=== PATIENT | male | born 1980 | race Caucasian/White ===

== ENCOUNTER 2018-08-20 22:47 | Inpatient (IN) | payer MEDICAID ==
[2018-08-20 22:49] VITALS: BMI 35.8
[2018-08-20] MEDS ORDERED: Heparin25000 units/250ml 1/2NS 25,000 UNITS/250 ML BAG IV STA ×2 (22:51)
--- NOTE | 2018-08-20 22:51 | C.PDOC ---
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 Is a NIDDM received 324 asa en route. Pt diaphoretic, non radiating pain Sharp , stabbing pressure 10/10 pain Time Seen by Provider: 08/20/18 22:50 Chief Complaint (Nursing): Chest Pain History Per: Patient, EMS, Family History/Exam Limitations: no limitations Onset/Duration Of Symptoms: Hrs Current Symptoms Are (Timing): Worse Context: Other Severity: Severe Pain Scale Rating Of: 10 Quality: Sharp, Tightness, Pressure, Squeezing Associated Symptoms: Diaphoresis Modifying Factors: None Exacerbating Factors: None Alleviating Factors: None Recent travel outside of the [place]: No Additional History Per: EMS Past Medical History Family History: States: No Known Family Hx Review Of Systems Constitutional: Negative for: Fever, Chills Eyes: Negative for: Vision Change ENT: Negative for: Throat Pain Cardiovascular: Positive for: Chest Pain Respiratory: Positive for: Shortness of Breath Gastrointestinal: Positive for: Nausea. Negative for: Abdominal Pain Musculoskeletal: Negative for: Back Pain Skin: Negative for: Rash Neurological: Negative for: Weakness Psych: Positive for: Anxiety Physical Exam - Physical Exam Appears: In Acute Distress Skin: Diaphoretic Head: Normacephalic Eye(s): bilateral: Normal Inspection Oral Mucosa: Moist Neck: Supple Chest: Symmetrical Cardiovascular: Rhythm Regular Respiratory: No Rales, No Rhonchi, No Wheezing Gastrointestinal/Abdominal: Soft, No Tenderness, Distention, No Guarding, No Rebound Back: No CVA Tenderness Extremity: No Tenderness, No Pedal Edema Extremity: Bilateral: Atraumatic, Normal Color And Temperature Pulses: Left Dorsalis Pedis: Normal, Right Dorsalis Pedis: Normal Neurological/Psych: Oriented x3 Gait: Unable To Assess ED Course And Treatment - Laboratory Results Result Diagrams: 08/20/18 23:12 ECG: Interpreted By Me, Viewed By Me ECG Rhythm: Sinus Rhythm, ST/T Changes (acute inferolat mi) Pulse Ox Interpretation: Normal - Radiology CXR: Interpreted by Me, Viewed By Me CXR Interpretation: No: Infiltrates, Fracture, Pnemothorax Progress Note: 22:[address] haynes and sent ekg. code heart activated - 22:46. Dr Haynes and team en route Critical Care Time - Critical Care Note Total Time (in mins): 30 Documented critical care: time excludes all time spent performing seperately billable procedures. Disposition Discussed With DrBharathi: Mikal Mckee Comment: accepted the pt onhis service and took over the care at 11:22 PM Doctor Will See Patient In The: ED Counseled Patient/Family Regarding: Studies Performed, Diagnosis - Disposition Disposition: HOSPITALIZED Disposition Time: 22:51 Condition: CRITICAL - POA Present On Arrival: Poor Glycemic Control - Clinical Impression Clinical Impression: Acute inferolateral myocardial infarction Decision To Admit - Pt Status Changed To: Hospital Disposition Of: Inpatient - Admit Certification Admit to Inpatient:: After my assessment, the patient will require hospitalization for at least two midnights. This is because of the severity of symptoms shown, intensity of services needed, and/or the medical risk in this patient being treated as an outpatient. - InPatient: Physician Admission Certification: I certify that this patient requires 2 or m ore midnights of care for the following reason:: After my assessment, the patient will require hospitalization for at least two midnights. This is because of the severity of symptoms shown, intensity of services needed, and/or the medical risk in this patient being treated as an outpatient. - . Bed Request Type: ICU Admitting Physician: Mikal Mckee Patient Diagnosis: Acute inferolateral myocardial infarction
[2018-08-20] MEDS ORDERED: Morphine 4 MG/ML VIAL ONE (23:00)
[2018-08-20] MEDS ORDERED: Heparin25000 units/250ml 1/2NS 25,000 UNITS/250 ML BAG IV ONE (23:01)
[2018-08-20] MEDS ORDERED: Heparin25000 units/250ml 1/2NS 25,000 UNITS/250 ML BAG IV PRN (23:09)
--- NOTE | 2018-08-20 23:17 | CP.PCM.HP ---
<Christopher Burroughs - Last Filed: 08/21/18 00:45> History of Present Illness - History of Present Illness History of Present Illness: 38M PMHx of DM with a 1hr hx of 10/10 chest pain, radiating into both upper extremtities, sweating and intense generalized body pains. Pt says it happened a ll of a sudden while having intercourse with his . Pt called ambulance and received ASA 325 and fentanyl 50mcg in the field. Pt still with intense chest pain at this time and is improving slightly with morphine. Pt is compliant with his DM oral medications. Pt says hes never had pains like this before, pt is very worried because his mom sisters and brothers have all of MIs in their 40s. EKG in ED shows STEMI PMHx: DM2 PSx: none FH: mom sisters and brothers have all of MIs in their 40s SocHx: smokes 3 cigs a day 20 years, no etoh or drugs Allergies: denies Home Rx: 2 Oral DM medications? [facility] pharmacy full code [place] [phone] Present on Admission - Present on Admission Any Indicators Present on Admission: No Review of Systems - Review of Systems All systems: reviewed and no additional remarkable complaints except (as per HPI) Past Patient History - Past Social History Smoking Status: Light Smoker < 10 Cigarettes Daily - CARDIAC Hx Hypertension: Yes - PULMONARY Hx Respiratory Disorders: No - NEUROLOGICAL Hx Neurological Disorder: No - HEENT Hx HEENT Problems: No - RENAL Hx Chronic Kidney Disease: No - ENDOCRINE/METABOLIC Hx Endocrine Disorders: Yes Hx Diabetes Mellitus Type 2: Yes - PSYCHIATRIC Hx Substance Use: No Meds Allergies/Adverse Reactions: Allergies Allergy/AdvReac Type Severity Reaction Status Date / Time No Known Allergies Allergy Verified 08/20/18 22:49 Physical Exam - Constitutional Appears: In Acute Distress - Head Exam Head Exam: ATRAUMATIC, NORMAL INSPECTION - Eye Exam Eye Exam: PERRL. absent: Scleral icterus - ENT Exam ENT Exam: Mucous Membranes Moist - Respiratory Exam Respiratory Exam: Respiratory Distress - Cardiovascular Exam Cardiovascular Exam: Tachycardia, +S1, +S2 - GI/Abdominal Exam GI & Abdominal Exam: absent: Rigid, Tenderness - Extremities Exam Extremities exam: Positive for: pedal pulses present. Negative for: pedal edema - Neurological Exam Neurological exam: Alert, CN II-XII Intact, Oriented x3 - Psychiatric Exam Psychiatric exam: Anxious - Skin Skin Exam: Diaphoretic Results - Vital Signs Recent Vital Signs: Last Vital Signs Temp Pulse 86 08/20/18 22:50 Resp 32 H 08/20/18 22:50 BP 120/89 08/20/18 22:50 Pulse Ox 97 08/20/18 22:50 - Labs Result Diagrams: 08/20/18 23:12 Assessment & Plan - Assessment and Plan (Free Text) Assessment: 38M hx of DM, admitted to ICU for STEMI Plan: STEMI-RCA? -ASA 325 in field -Brillinta 180 stat, c/w 90 BID -Heparin GGT -Crestor 40 HS -Lopressor 12.5 BID -NS @ 80 -Dr Dias Cardio consulted 1. L Main: Patent 2. LAD: Distal 50-60% 3. L Cx/OM: Mid 80% 4. RCA: Mid 99%, distal 90% stenosis 5. LV: EF 55%, Inferior Hypo, EDP 22 Successful intervention of RCA with 2 DEStents -Morphine 2 q4 PRN -f/u Lipid panel, TSH DM Accuchecks ISS Med f/u A1C PPx Heparin drip PTX 40 daily Diabetic HHD <Mikal Mckee - Last Filed: 08/21/18 05:45> Results - Vital Signs Recent Vital Signs: Last Vital Signs Temp 97.6 F 08/21/18 00:35 Pulse 69 08/21/18 04:49 Resp 16 08/21/18 04:49 BP 155/82 H 08/21/18 04:49 Pulse Ox 96 08/21/18 04:49 - Labs Result Diagrams: 08/20/18 23:12 Labs: Laboratory Results - last 24 hr 08/20/18 08/20/18 08/20/18 23:08 23:12 23:12 WBC 9.8 RBC 5.52 Hgb 15.7 Hct 45.7 MCV 82.8 MCH 28.4 MCHC 34.3 RDW 13.6 Plt Count 190 MPV 11.2 Neut % (Auto) 55.4 Lymph % (Auto) 34.3 [place] % (Auto) 8.3 Eos % (Auto) 1.6 Baso % (Auto) 0.4 Neut # (Auto) 5.4 Lymph # (Auto) 3.4 Carbon # (Auto) 0.8 Eos # (Auto) 0.2 Baso # (Auto) 0.0 PT 11.5 INR 1.1 APTT 26.2 Troponin I Blood Type O POSITIVE Antibody Screen Negative 08/20/18 23:12 WBC RBC Hgb Hct MCV MCH MCHC RDW Plt Count MPV Neut % (Auto) Lymph % (Auto) [place] % (Auto) Eos % (Auto) Baso % (Auto) Neut # (Auto) Lymph # (Auto) Carbon # (Auto) Eos # (Auto) Baso # (Auto) PT INR APTT Troponin I < 0.0120 Blood Type Antibody Screen Assessment & Plan - Date & Time Date: 08/20/18 (I have seen and examined the patient. I agree with the findings and plan of care as documented by Dr. Burroughs. Patient with STEMI. Code heart called. Cath performed. Admit to ICU for further management. History of diabetes. NISS and accuchecks. Monitor for acute changes.) Time: 23:45 Attending/Attestation - Attestation I have personally seen and examined this patient.: Yes I have fully participated in the care of the patient.: Yes I have reviewed all pertinent clinical information: Yes
[2018-08-20 23:20] LABS: BASO % 0.4 % (0.0-2.0); EOS # 0.2 K/uL (0.0-0.7); EOS % 1.6 % (0.0-4.0); HEMOGLOBIN 15.7 g/dL (12.0-18.0); LYMPH # 3.4 K/uL (1.0-4.3); LYMPH % 34.3 % (20.0-40.0); MEAN CELL VOLUME 82.8 fL (80.0-94.0); MEAN CORPUSCULAR HEMOGLOBIN 28.4 pg (27.0-31.0); MEAN CORPUSCULAR HGB CONC 34.3 g/dL (33.0-37.0); MEAN PLATELET VOLUME 11.2 fL (7.2-11.7); MONO # 0.8 K/uL (0.0-0.8); MONO % 8.3 % (0.0-10.0); NEUT # 5.4 K/uL (1.8-7.0); NEUT % 55.4 % (50.0-75.0); NRBC % 0.1 % (0.0-2.0); RBC 5.52 Mil/uL (4.40-5.90); RED CELL DISTRIBUTION WIDTH 13.6 % (11.5-14.5); WHITE BLOOD COUNT 9.8 K/uL (4.8-10.8)
[2018-08-20 23:25] LABS: INR 1.1; PARTIAL THROMBOPLASTIN TIME 26.2 SECONDS (21-34); PROTHROMBIN TIME 11.5 SECONDS (9.7-12.2)
[2018-08-20] MEDS ORDERED: Glucagon Recombinant 1 mg Inj IM PRN (23:42)
[2018-08-20] MEDS ORDERED: Dextrose 50% SYRINGE Inj (50 ml) IV PRN (23:42)
[2018-08-20] MEDS ORDERED: Midazolam 2 MG/2 ML VIAL ONE (23:54)
[2018-08-20] MEDS ORDERED: Eptifibatide 20 mg/10mL Inj IVP ONE (23:55)
--- NOTE | 2018-08-21 00:36 | CP.PCM.CON ---
History of Present Illness - History of Present Illness History of Present Illness: Patient with Inferior STEMI 1. L Main: Patent 2. LAD: Distal 50-60% 3. L Cx/OM: Mid 80% 4. RCA: Mid 99%, distal 90% stenosis 5. LV: EF 55%, Inferior Hypo, EDP 22 Successful intervention of RCA with 2 DEStents Plan: 1. staged PCI of L Cx as out patient 2. ASA 81, Statins, B blockers, JOSE I for life 3. Brilinta for 1 year IVF for 12 hrs Bed rest till 4am. OOB to ambulate after Resume diet stop Heaprin drip DVT/GI prophylaxis DM management Nutrition consultation EKG daily ECHO Tuesday Check am labs Past Patient History - Past Social History Smoking Status: Light Smoker < 10 Cigarettes Daily - CARDIAC Hx Hypertension: Yes - PULMONARY Hx Respiratory Disorders: No - NEUROLOGICAL Hx Neurological Disorder: No - HEENT Hx HEENT Problems: No - RENAL Hx Chronic Kidney Disease: No - ENDOCRINE/METABOLIC Hx Endocrine Disorders: Yes Hx Diabetes Mellitus Type 2: Yes - PSYCHIATRIC Hx Substance Use: No Meds Allergies/Adverse Reactions: Allergies Allergy/AdvReac Type Severity Reaction Status Date / Time No Known Allergies Allergy Verified 08/20/18 22:49 - Medications Medications: Current Medications Dextrose (Dextrose 50% Inj) 0 ml IV STAT PRN; Protocol PRN Reason: Hypoglycemia Protocol Dextrose (Glutose 15) 0 gm PO ONCE PRN; Protocol PRN Reason: Hypoglycemia Protocol Enoxaparin Sodium (Lovenox) 40 mg SC DAILY TOVA Glucagon (Glucagen Diagnostic Kit) 0 mg IM STAT PRN; Protocol PRN Reason: Hypoglycemia Protocol Dextrose (Dextrose 5% In Water 1000 Ml) 1,000 mls @ 0 mls/hr IV .Q0M PRN; Protocol PRN Reason: Hypoglycemia Protocol Insulin Human Regular (Novolin R) 0 unit SC ACHS TOVA; Protocol Morphine Sulfate (Morphine) 2 mg IVP Q4 PRN PRN Reason: Pain, severe (8-10) Pantoprazole Sodium (Protonix Inj) 40 mg IVP DAILY TOVA Results - Vital Signs Recent Vital Signs: Last Vital Signs Temp Pulse 83 08/20/18 23:06 Resp 16 08/20/18 23:06 BP 110/84 08/20/18 23:06 Pulse Ox 100 08/20/18 23:06 - Labs Result Diagrams: 08/20/18 23:12 Labs: Laboratory Results - last 24 hr 08/20/18 08/20/18 08/20/18 23:08 23:12 23:12 WBC 9.8 RBC 5.52 Hgb 15.7 Hct 45.7 MCV 82.8 MCH 28.4 MCHC 34.3 RDW 13.6 Plt Count 190 MPV 11.2 Neut % (Auto) 55.4 Lymph % (Auto) 34.3 [place] % (Auto) 8.3 Eos % (Auto) 1.6 Baso % (Auto) 0.4 Neut # (Auto) 5.4 Lymph # (Auto) 3.4 [place] # (Auto) 0.8 Eos # (Auto) 0.2 Baso # (Auto) 0.0 PT 11.5 INR 1.1 APTT 26.2 Troponin I Blood Type O POSITIVE Antibody Screen Negative 08/20/18 23:12 WBC RBC Hgb Hct MCV MCH MCHC RDW Plt Count MPV Neut % (Auto) Lymph % (Auto) [place] % (Auto) Eos % (Auto) Baso % (Auto) Neut # (Auto) Lymph # (Auto) [place] # (Auto) Eos # (Auto) Baso # (Auto) PT INR APTT Troponin I < 0.0120 Blood Type Antibody Screen
[2018-08-21] MEDS ORDERED: Iodixanol 320 MG/ML 200 ML BOTTLE IV ONE (00:41)
[2018-08-21] MEDS ORDERED: Lidocaine 2% MPF (5 ml) Inj ONE (00:41)
[2018-08-21] MEDS ORDERED: Nitroglycerin 50mg in D5W 50 MG/250 ML BOTTLE IV ONE (00:41)
[2018-08-21] MEDS: Sodium Chloride 0.9% 1,000 ML IV SCH ×2 (01:00→14:00)
[2018-08-21 06:17] LABS: BASO % 0.4 % (0.0-2.0); EOS % 0.6 % (0.0-4.0); HEMOGLOBIN 15.1 g/dL (12.0-18.0); LYMPH # 1.8 K/uL (1.0-4.3); MEAN CELL VOLUME 83.3 fL (80.0-94.0); MEAN CORPUSCULAR HEMOGLOBIN 28.2 pg (27.0-31.0); MEAN CORPUSCULAR HGB CONC 33.9 g/dL (33.0-37.0); MEAN PLATELET VOLUME 10.4 fL (7.2-11.7); MONO # 0.6 K/uL (0.0-0.8); MONO % 7.5 % (0.0-10.0); NEUT # 5.8 K/uL (1.8-7.0); NEUT % 69.5 % (50.0-75.0); NRBC % 0.1 % (0.0-2.0); RBC 5.33 Mil/uL (4.40-5.90); RED CELL DISTRIBUTION WIDTH 13.7 % (11.5-14.5); WHITE BLOOD COUNT 8.3 K/uL (4.8-10.8)
[2018-08-21 06:33] LABS: ALB/GLOB RATIO 1.7 (1.0-2.1); ALT/SGPT 113 U/L (21-72); AST/SGOT 208 U/L (17-59); BLOOD UREA NITROGEN 8 mg/dL (9-20); CALCIUM 8.7 mg/dl (8.6-10.4); GFR NON-AFRICAN AMERICAN > 60; HDL CHOLESTEROL 29 mg/dL (30-70)
[2018-08-21 06:39] LABS: LDL CHOLESTEROL 159 mg/dL (0-129)
[2018-08-21] MEDS: (Novolin R) Insulin Human Regular 100 units/ml vial SC SCH ×3 (08:09→17:22)
[2018-08-21 08:13] LABS: CK-MB 67.1 ng/mL (0.0-3.38); TROPONIN I 24.5 ng/mL (0.00-0.120)
--- NOTE | 2018-08-21 08:17 | CP.CCUPN ---
CCU Subjective - Physician Review Events Since Last Encounter (Free Text): 08/21/18 08:16 Patient is a 38-year-old male with diabetes admitted with acute ST elevation ND, status post RCA stenting. Patient is currently no chest pain. He is doing well. CCU Objective - Vital Signs / Intake & Output Vital Signs (Last 4 hours): Vital Signs Pulse Resp BP Pulse Ox 08/21/18 07:40 81 18 99 08/21/18 07:30 68 19 98 08/21/18 07:25 61 13 119/84 97 08/21/18 07:20 60 20 119/84 08/21/18 06:49 65 18 150/57 L 97 08/21/18 06:20 74 18 132/87 08/21/18 05:49 66 15 113/56 L 99 08/21/18 05:20 70 11 L 112/76 08/21/18 04:49 69 16 155/82 H 96 08/21/18 04:20 71 17 136/36 L Intake and Output (Last 8hrs): Intake & Output 08/20/18 08/21/18 08/21/18 22:59 06:59 14:59 Intake Total 1360 80 Output Total 1650 Balance -290 80 Weight 242 lb 8.136 oz 221 lb 1.978 oz Intake: Intake, IV Amount 400 80 Left Hand 400 80 Oral 960 Output: Urine 1650 Urine, Voided 1650 - Physical Exam Narrative Physical Exam (Free Text): 08/21/18 08:17 H&E PERRLA, neck supple Chest good air entry bilaterally regular [place] nontender abdomen - Medications Active Medications: Active Medications Generic Name Dose Route Start Last Admin Trade Name Freq PRN Reason Stop Dose Admin Aspirin 81 mg 08/21/18 10:00 Aspirin Chewable PO DAILY TOVA Enoxaparin Sodium 40 mg 08/21/18 10:00 Lovenox SC DAILY TOVA Sodium Chloride 1,000 mls @ 80 mls/hr 08/21/18 01:00 08/21/18 01:00 Sodium Chloride 0.9% IV 80 mls/hr .[id number] TOVA Administration Insulin Human Regular 0 unit 08/21/18 07:30 08/21/18 08:09 Novolin R SC 8 unit ACHS TOVA Administration Protocol Metoprolol Tartrate 12.5 mg 08/21/18 10:00 Lopressor PO BID TOVA Pantoprazole Sodium 40 mg 08/21/18 10:00 Protonix Ec Tab PO DAILY TOVA Rosuvastatin Calcium 40 mg 08/21/18 22:00 Crestor PO HS TOVA Ticagrelor 90 mg 08/21/18 10:00 Brilinta PO BID TOVA - Patient Studies Lab Studies: Lab Studies 08/21/18 08/21/18 08/21/18 Range/Units 07:19 06:09 06:07 WBC 8.3 (4.8-10.8) K/uL RBC 5.33 (4.40-5.90) Mil/uL Hgb 15.1 (12.0-18.0) g/dL Hct 44.4 (35.0-51.0) % MCV 83.3 (80.0-94.0) fL MCH 28.2 (27.0-31.0) pg MCHC 33.9 (33.0-37.0) g/dL RDW 13.7 (11.5-14.5) % Plt Count 147 (130-400) K/uL MPV 10.4 (7.2-11.7) fL Neut % (Auto) 69.5 (50.0-75.0) % Lymph % (Auto) 22.0 (20.0-40.0) % [place] % (Auto) 7.5 (0.0-10.0) % Eos % (Auto) 0.6 (0.0-4.0) % Baso % (Auto) 0.4 (0.0-2.0) % Neut # (Auto) 5.8 (1.8-7.0) K/uL Lymph # (Auto) 1.8 (1.0-4.3) K/uL [place] # (Auto) 0.6 (0.0-0.8) K/uL Eos # (Auto) 0.0 (0.0-0.7) K/uL Baso # (Auto) 0.0 (0.0-0.2) K/uL PT (9.7-12.2) SECONDS INR APTT (21-34) SECONDS Sodium 136 (132-148) mmol/L Potassium 3.7 (3.6-5.2) mmol/L Chloride 100 (98-107) mmol/L Carbon Dioxide 23 (22-30) mmol/L Anion Gap 16 (10-20) BUN 8 L (9-20) mg/dL Creatinine 0.6 L (0.8-1.5) mg/dL Est GFR ( Amer) > 60 Est GFR (Non-Af Amer) > 60 Random Glucose 403 H* (75-110) mg/dL Calcium 8.7 (8.6-10.4) mg/dl Phosphorus 4.7 H (2.5-4.5) mg/dL Magnesium 1.8 (1.6-2.3) mg/dL Total Bilirubin 0.5 (0.2-1.3) mg/dL AST 208 H (17-59) U/L ALT 113 H (21-72) U/L Alkaline Phosphatase 103 (38-126) U/L Total Creatine Kinase 1117 H (55-170) U/L CK-MB (Mass) 67.1 H (0.0-3.38) ng/mL Troponin I 24.5000 H* (0.00-0.120) ng/mL Total Protein 6.3 (6.3-8.3) g/dL Albumin 4.0 (3.5-5.0) g/dL Globulin 2.3 (2.2-3.9) gm/dL Albumin/Globulin Ratio 1.7 (1.0-2.1) Triglycerides 217 H (0-149) mg/dL Cholesterol 211 H (0-199) mg/dL LDL Cholesterol Direct 159 H (0-129) mg/dL HDL Cholesterol 29 L (30-70) mg/dL TSH 3rd Generation 0.89 (0.46-4.68) mIU/L Blood Type Antibody Screen 08/20/18 08/20/18 08/20/18 Range/Units 23:12 23:12 23:12 WBC 9.8 (4.8-10.8) K/uL RBC 5.52 (4.40-5.90) Mil/uL Hgb 15.7 (12.0-18.0) g/dL Hct 45.7 (35.0-51.0) % MCV 82.8 (80.0-94.0) fL MCH 28.4 (27.0-31.0) pg MCHC 34.3 (33.0-37.0) g/dL RDW 13.6 (11.5-14.5) % Plt Count 190 (130-400) K/uL MPV 11.2 (7.2-11.7) fL Neut % (Auto) 55.4 (50.0-75.0) % Lymph % (Auto) 34.3 (20.0-40.0) % [place] % (Auto) 8.3 (0.0-10.0) % Eos % (Auto) 1.6 (0.0-4.0) % Baso % (Auto) 0.4 (0.0-2.0) % Neut # (Auto) 5.4 (1.8-7.0) K/uL Lymph # (Auto) 3.4 (1.0-4.3) K/uL [place] # (Auto) 0.8 (0.0-0.8) K/uL Eos # (Auto) 0.2 (0.0-0.7) K/uL Baso # (Auto) 0.0 (0.0-0.2) K/uL PT 11.5 (9.7-12.2) SECONDS INR 1.1 APTT 26.2 (21-34) SECONDS Sodium (132-148) mmol/L Potassium (3.6-5.2) mmol/L Chloride (98-107) mmol/L Carbon Dioxide (22-30) mmol/L Anion Gap (10-20) BUN (9-20) mg/dL Creatinine (0.8-1.5) mg/dL Est GFR ( Amer) Est GFR (Non-Af Amer) Random Glucose (75-110) mg/dL Calcium (8.6-10.4) mg/dl Phosphorus (2.5-4.5) mg/dL Magnesium (1.6-2.3) mg/dL Total Bilirubin (0.2-1.3) mg/dL AST (17-59) U/L ALT (21-72) U/L Alkaline Phosphatase (38-126) U/L Total Creatine Kinase (55-170) U/L CK-MB (Mass) (0.0-3.38) ng/mL Troponin I < 0.0120 (0.00-0.120) ng/mL Total Protein (6.3-8.3) g/dL Albumin (3.5-5.0) g/dL Globulin (2.2-3.9) gm/dL Albumin/Globulin Ratio (1.0-2.1) Triglycerides (0-149) mg/dL Cholesterol (0-199) mg/dL LDL Cholesterol Direct (0-129) mg/dL HDL Cholesterol (30-70) mg/dL TSH 3rd Generation (0.46-4.68) mIU/L Blood Type Antibody Screen 08/20/18 Range/Units 23:08 WBC (4.8-10.8) K/uL RBC (4.40-5.90) Mil/uL Hgb (12.0-18.0) g/dL Hct (35.0-51.0) % MCV (80.0-94.0) fL MCH (27.0-31.0) pg MCHC (33.0-37.0) g/dL RDW (11.5-14.5) % Plt Count (130-400) K/uL MPV (7.2-11.7) fL Neut % (Auto) (50.0-75.0) % Lymph % (Auto) (20.0-40.0) % [place] % (Auto) (0.0-10.0) % Eos % (Auto) (0.0-4.0) % Baso % (Auto) (0.0-2.0) % Neut # (Auto) (1.8-7.0) K/uL Lymph # (Auto) (1.0-4.3) K/uL [place] # (Auto) (0.0-0.8) K/uL Eos # (Auto) (0.0-0.7) K/uL Baso # (Auto) (0.0-0.2) K/uL PT (9.7-12.2) SECONDS INR APTT (21-34) SECONDS Sodium (132-148) mmol/L Potassium (3.6-5.2) mmol/L Chloride (98-107) mmol/L Carbon Dioxide (22-30) mmol/L Anion Gap (10-20) BUN (9-20) mg/dL Creatinine (0.8-1.5) mg/dL Est GFR ( Amer) Est GFR (Non-Af Amer) Random Glucose (75-110) mg/dL Calcium (8.6-10.4) mg/dl Phosphorus (2.5-4.5) mg/dL Magnesium (1.6-2.3) mg/dL Total Bilirubin (0.2-1.3) mg/dL AST (17-59) U/L ALT (21-72) U/L Alkaline Phosphatase (38-126) U/L Total Creatine Kinase (55-170) U/L CK-MB (Mass) (0.0-3.38) ng/mL Troponin I (0.00-0.120) ng/mL Total Protein (6.3-8.3) g/dL Albumin (3.5-5.0) g/dL Globulin (2.2-3.9) gm/dL Albumin/Globulin Ratio (1.0-2.1) Triglycerides (0-149) mg/dL Cholesterol (0-199) mg/dL LDL Cholesterol Direct (0-129) mg/dL HDL Cholesterol (30-70) mg/dL TSH 3rd Generation (0.46-4.68) mIU/L Blood Type O POSITIVE Antibody Screen Negative Laboratory Results - last 24 hr 08/20/18 08/20/18 08/20/18 23:08 23:12 23:12 WBC 9.8 RBC 5.52 Hgb 15.7 Hct 45.7 MCV 82.8 MCH 28.4 MCHC 34.3 RDW 13.6 Plt Count 190 MPV 11.2 Neut % (Auto) 55.4 Lymph % (Auto) 34.3 [place] % (Auto) 8.3 Eos % (Auto) 1.6 Baso % (Auto) 0.4 Neut # (Auto) 5.4 Lymph # (Auto) 3.4 [place] # (Auto) 0.8 Eos # (Auto) 0.2 Baso # (Auto) 0.0 PT 11.5 INR 1.1 APTT 26.2 Sodium Potassium Chloride Carbon Dioxide Anion Gap BUN Creatinine Est GFR ( Amer) Est GFR (Non-Af Amer) Random Glucose Calcium Phosphorus Magnesium Total Bilirubin AST ALT Alkaline Phosphatase Total Creatine Kinase CK-MB (Mass) Troponin I Total Protein Albumin Globulin Albumin/Globulin Ratio Triglycerides Cholesterol LDL Cholesterol Direct HDL Cholesterol TSH 3rd Generation Blood Type O POSITIVE Antibody Screen Negative 08/20/18 08/21/1819 23:12 06:07 06:09 WBC 8.3 RBC 5.33 Hgb 15.1 Hct 44.4 MCV 83.3 MCH 28.2 MCHC 33.9 RDW 13.7 Plt Count 147 MPV 10.4 Neut % (Auto) 69.5 Lymph % (Auto) 22.0 [place] % (Auto) 7.5 Eos % (Auto) 0.6 Baso % (Auto) 0.4 Neut # (Auto) 5.8 Lymph # (Auto) 1.8 [place] # (Auto) 0.6 Eos # (Auto) 0.0 Baso # (Auto) 0.0 PT INR APTT Sodium 136 Potassium 3.7 Chloride 100 Carbon Dioxide 23 Anion Gap 16 BUN 8 L Creatinine 0.6 L Est GFR ( Amer) > 60 Est GFR (Non-Af Amer) > 60 Random Glucose 403 H* Calcium 8.7 Phosphorus 4.7 H Magnesium 1.8 Total Bilirubin 0.5 AST 208 H ALT 113 H Alkaline Phosphatase 103 Total Creatine Kinase CK-MB (Mass) Troponin I < 0.0120 Total Protein 6.3 Albumin 4.0 Globulin 2.3 Albumin/Globulin Ratio 1.7 Triglycerides 217 H Cholesterol 211 H LDL Cholesterol Direct 159 H HDL Cholesterol 29 L TSH 3rd Generation 0.89 Blood Type Antibody Screen 08/21/18 07:19 WBC RBC Hgb Hct MCV MCH MCHC RDW Plt Count MPV Neut % (Auto) Lymph % (Auto) [place] % (Auto) Eos % (Auto) Baso % (Auto) Neut # (Auto) Lymph # (Auto) [place] # (Auto) Eos # (Auto) Baso # (Auto) PT INR APTT Sodium Potassium Chloride Carbon Dioxide Anion Gap BUN Creatinine Est GFR ( Amer) Est GFR (Non-Af Amer) Random Glucose Calcium Phosphorus Magnesium Total Bilirubin AST ALT Alkaline Phosphatase Total Creatine Kinase 1117 H CK-MB (Mass) 67.1 H Troponin I 24.5000 H* Total Protein Albumin Globulin Albumin/Globulin Ratio Triglycerides Cholesterol LDL Cholesterol Direct HDL Cholesterol TSH 3rd Generation Blood Type Antibody Screen EKG/Cardiology Studies: Cardiology / EKG Studies 08/20/18 22:51 ELECTROCARDIOGRAM Stat Comment: Mode Of Transportation: BED Reason For Exam: chest pain 08/20/18 23:08 EKG [ELECTROCARDIOGRAM] Stat Comment: st changes -improved Mode Of Transportation: STRETCHER Reason For Exam: code heart 08/21/18 00:50 EKG [ELECTROCARDIOGRAM] Stat Comment: Mode Of Transportation: Reason For Exam: post cardiac cath 08/21/18 08:00 EKG [ELECTROCARDIOGRAM] Routine Comment: Mode Of Transportation: PORTABLE Reason For Exam: CAD Fingerstick Blood Sugar Results: 372 Review of Systems - Review of Systems All systems: reviewed and no additional remarkable complaints except Critical Care Progress Note - Nutrition Nutrition: Nutrition Category Date Time Status Diabetic [Consistent Carbohydrate] [DIET] Diets 08/21/18 Breakfast Active Assessment/Plan - Assessment and Plan (Free Text) Assessment: 38-year-old male admitted to the hospital with acute ST elevation ND. Status post stent. Currently on beta-samra, antiplatelets, anticholesterol medication. Glucose control. Stable. We will continue to monitor. Cardiology follow-up. Echocardiogram and will follow the patient
[2018-08-21] MEDS ORDERED: (Lantus) Insulin Glargine, Recombinant SC ONE (09:00)
[2018-08-21] MEDS: Pantoprazole 40 mg EC Tab PO SCH (09:43)
[2018-08-21] MEDS: Enoxaparin 40 mg Syringe SC SCH (09:44)
--- NOTE | 2018-08-21 12:09 | CP.PCM.PN ---
Subjective - Date & Time of Evaluation Date of Evaluation: 08/21/18 Time of Evaluation: 09:00 - Subjective Subjective: lying on bed comfortable denies chest pain,no sob. Patient's groin dressing intact Has strong family history of CAD and early cardiac Patient doesn't check his sugar at home,takes oral meds,don't know what meds His in on her way to brining his meds Objective - Vital Signs/Intake and Output Vital Signs (last 24 hours): Temp Pulse Resp BP Pulse Ox 97.6 F 81 14 117/82 97 08/21/18 00:35 08/21/18 10:50 08/21/18 10:50 08/21/18 10:25 08/21/18 10:50 Intake and Output: 08/21/18 08/21/18 06:59 18:59 Intake Total 1360 930 Output Total 1650 2 Balance -290 928 - Medications Medications: Current Medications Aspirin (Aspirin Chewable) 81 mg PO DAILY [facility] Last Admin: 08/21/18 09:41 Dose: 81 mg Enoxaparin Sodium (Lovenox) 40 mg SC DAILY [facility] Last Admin: 08/21/18 09:44 Dose: 40 mg Sodium Chloride (Sodium Chloride 0.9%) 1,000 mls @ 80 mls/hr IV .[id number] [facility] Last Admin: 08/21/18 01:00 Dose: 80 mls/hr Insulin Human Regular (Novolin R) 0 unit SC [facility]; Protocol Last Admin: 08/21/18 08:09 Dose: 8 unit Metoprolol Tartrate (Lopressor) 12.5 mg PO BID [facility] Last Admin: 08/21/18 09:44 Dose: 12.5 mg Pantoprazole Sodium (Protonix Ec Tab) 40 mg PO DAILY [facility] Last Admin: 08/21/18 09:43 Dose: 40 mg Rosuvastatin Calcium (Crestor) 40 mg PO HS [facility] Ticagrelor (Brilinta) 90 mg PO BID [facility] Last Admin: 08/21/18 09:43 Dose: 90 mg - Labs Labs: 08/21/18 06:09 08/21/18 06:07 PT 11.5 SECONDS (9.7-12.2) 08/20/18 23:12 INR 1.1 08/20/18 23:12 APTT 26.2 SECONDS (21-34) 08/20/18 23:12 - Constitutional Appears: Non-toxic, No Acute Distress - Head Exam Head Exam: NORMAL INSPECTION - Eye Exam Eye Exam: Normal appearance - ENT Exam ENT Exam: Mucous Membranes Moist - Neck Exam Neck Exam: Full ROM - Respiratory Exam Respiratory Exam: Clear to Ausculation Bilateral - Cardiovascular Exam Cardiovascular Exam: REGULAR RHYTHM - GI/Abdominal Exam GI & Abdominal Exam: Soft, Normal Bowel Sounds - Extremities Exam Extremities Exam: Full ROM - Back Exam Back Exam: NORMAL INSPECTION - Neurological Exam Neurological Exam: Awake, Oriented x3 - Psychiatric Exam Psychiatric exam: Normal Mood - Skin Skin Exam: Dry, Intact Assessment and Plan - Assessment and Plan (Free Text) Plan: 1.STEMI s/p code heart and cardiac cath with stent Dr Dias Cardio consulted 1. L Main: Patent 2. LAD: Distal 50-60% 3. L Cx/OM: Mid 80% 4. RCA: Mid 99%, distal 90% stenosis 5. LV: EF 55%, Inferior Hypo, EDP 22 Successful intervention of RCA with 2 DEStents -ASA 325 in field -Brillinta 90mg BID -Crestor 40 HS -Lopressor 12.5 BID start JOSE as per heading pinner follow Echo planning staged PCI of Left Cx as an out patient 2. DM -uncontrolled HA1c 15 started on lantus 10units,insulin apart 5units with meals Endocrine consult and increase insulin as needed 3.Hyperlipidemia statin discussed about put patient f/u 4.Obesity 5. PPx Heparin PTX 40 daily Diabetic [facility]
--- NOTE | 2018-08-21 18:17 | RAD ---
Date of service: 08/20/2018 PROCEDURE: CHEST RADIOGRAPH, 1 VIEW HISTORY: chest pain COMPARISON: None available. FINDINGS: LUNGS: Mild pulmonary vascular congestion is noted. PLEURA: No pneumothorax or pleural fluid seen. CARDIOVASCULAR: No aortic atherosclerotic calcification present. Normal. OSSEOUS STRUCTURES: No significant abnormalities. VISUALIZED UPPER ABDOMEN: Normal. OTHER FINDINGS: None. IMPRESSION: Mild pulmonary vascular congestion noted.
--- NOTE | 2018-08-21 19:08 | CP.PCM.PN ---
Subjective - Date & Time of Evaluation Date of Evaluation: 08/21/18 Time of Evaluation: 15:05 - Subjective Subjective: Patient seen and evaluated S/P Inferior STEMI Now chest pain free Objective - Vital Signs/Intake and Output Vital Signs (last 24 hours): Temp Pulse Resp BP Pulse Ox 97.6 F 81 14 117/82 97 08/21/18 00:35 08/21/18 10:50 08/21/18 10:50 08/21/18 10:25 08/21/18 10:50 Intake and Output: 08/21/18 08/21/18 06:59 18:59 Intake Total 1360 930 Output Total 1650 2 Balance -290 928 - Medications Medications: Current Medications Aspirin (Aspirin Chewable) 81 mg PO DAILY [facility] Last Admin: 08/21/18 09:41 Dose: 81 mg Enoxaparin Sodium (Lovenox) 40 mg SC DAILY [facility] Last Admin: 08/21/18 09:44 Dose: 40 mg Sodium Chloride (Sodium Chloride 0.9%) 1,000 mls @ 80 mls/hr IV .[id number] [facility] Last Admin: 08/21/18 01:00 Dose: 80 mls/hr Insulin Human Regular (Novolin R) 0 unit SC [facility]; Protocol Last Admin: 08/21/18 08:09 Dose: 8 unit Metoprolol Tartrate (Lopressor) 12.5 mg PO BID [facility] Last Admin: 08/21/18 09:44 Dose: 12.5 mg Pantoprazole Sodium (Protonix Ec Tab) 40 mg PO DAILY [facility] Last Admin: 08/21/18 09:43 Dose: 40 mg Rosuvastatin Calcium (Crestor) 40 mg PO [facility] Ticagrelor (Brilinta) 90 mg PO BID [facility] Last Admin: 08/21/18 09:43 Dose: 90 mg - Labs Labs: 08/21/18 06:09 08/21/18 06:07 PT 11.5 SECONDS (9.7-12.2) 08/20/18 23:12 INR 1.1 08/20/18 23:12 APTT 26.2 SECONDS (21-34) 08/20/18 23:12 - Constitutional Appears: Non-toxic, No Acute Distress - Head Exam Head Exam: NORMAL INSPECTION - Eye Exam Eye Exam: Normal appearance - ENT Exam ENT Exam: Mucous Membranes Moist - Neck Exam Neck Exam: Full ROM - Respiratory Exam Respiratory Exam: Clear to Ausculation Bilateral - Cardiovascular Exam Cardiovascular Exam: REGULAR RHYTHM - GI/Abdominal Exam GI & Abdominal Exam: Soft, Normal Bowel Sounds - Extremities Exam Extremities Exam: Full ROM - Back Exam Back Exam: NORMAL INSPECTION - Neurological Exam Neurological Exam: Awake, Oriented x3 - Psychiatric Exam Psychiatric exam: Normal Mood - Skin Skin Exam: Dry, Intact Assessment and Plan - Assessment and Plan (Free Text) Plan: 1.STEMI s/p code heart and cardiac cath with stent 1. L Main: Patent 2. LAD: Distal 50-60% 3. L Cx/OM: Mid 80% 4. RCA: Mid 99%, distal 90% stenosis 5. LV: EF 55%, Inferior Hypo, EDP 22 Successful intervention of RCA with 2 DEStents -ASA 81 daily -Brillinta 90mg BID -Crestor 40 HS -Lopressor 12.5 BID start JOSE if BP can handle follow Echo planning staged PCI of Left Cx as an out patient 2. DM -uncontrolled HA1c 15 started on lantus 10units,insulin apart 5units with meals Endocrine consult and increase insulin as needed 3.Hyperlipidemia statin discussed about put patient f/u 4.Obesity 5. PPx Heparin PTX 40 daily Diabetic HHD Objective - Vital Signs/Intake and Output Vital Signs (last 24 hours): Temp Pulse Resp BP Pulse Ox 97.6 F 69 20 112/70 100 08/21/18 00:35 08/21/18 18:50 08/21/18 18:50 08/21/18 17:26 08/21/18 18:50 Intake and Output: 08/21/18 08/22/18 18:59 06:59 Intake Total 1990 Output Total 802 Balance 1188 - Medications Medications: Current Medications Aspirin (Aspirin Chewable) 81 mg PO DAILY [facility] Last Admin: 08/21/18 09:41 Dose: 81 mg Enoxaparin Sodium (Lovenox) 40 mg SC DAILY [facility] Last Admin: 08/21/18 09:44 Dose: 40 mg Sodium Chloride (Sodium Chloride 0.9%) 1,000 mls @ 80 mls/hr IV .[id number] [facility] Last Admin: 08/21/18 14:00 Dose: 80 mls/hr Insulin Aspart (Novolog) 10 unit SC AC[facility] Insulin Glargine (Lantus) 20 unit SC HS [facility] Insulin Human Regular (Novolin R) 0 unit SC [facility]; Protocol Last Admin: 08/21/18 17:22 Dose: 3 unit Metoprolol Tartrate (Lopressor) 12.5 mg PO BID [facility] Last Admin: 08/21/18 17:24 Dose: 12.5 mg Pantoprazole Sodium (Protonix Ec Tab) 40 mg PO DAILY [facility] Last Admin: 08/21/18 09:43 Dose: 40 mg Rosuvastatin Calcium (Crestor) 40 mg PO HS [facility] Ticagrelor (Brilinta) 90 mg PO BID [facility] Last Admin: 08/21/18 17:23 Dose: 90 mg - Labs Labs: 08/21/18 06:09 08/21/18 06:07 PT 11.5 SECONDS (9.7-12.2) 08/20/18 23:12 INR 1.1 08/20/18 23:12 APTT 26.2 SECONDS (21-34) 08/20/18 23:12
[2018-08-21] MEDS ORDERED: (Lantus) Insulin Glargine, Recombinant SC SCH ×3 (22:00)
[2018-08-21] MEDS: (Novolog) Insulin Aspart, Recombinant 100 u/ml 10 ml vial SC SCH (22:00)
--- NOTE | 2018-08-22 03:22 | CON ---
DATE: 08/21/2018 ENDOCRINOLOGY CONSULTATION LOCATION: ICU room 615. HISTORY OF PRESENT ILLNESS: This is a 38-year-old male with known history of type 2 diabetes and hypertension, presenting here with sudden onset of precordial chest pain and evaluated to have an acute myocardial infarction and is now being referred for diabetic evaluation because of persistent hyperglycemic accelerations as noted thereof. PAST MEDICAL HISTORY: As mentioned above, history of type 2 diabetes, on a combination of oral hypoglycemic therapy. The exact names are not known by the patient at this time. History of hypertension and dyslipidemia. FAMILY HISTORY: Strongly positive for diabetes and heart disease in his mother, brothers, and sisters. All in their mid 40s from myocardial infarction. SOCIAL HISTORY: The patient smokes half a pack a day for over 20 years. Has a supportive family otherwise. REVIEW OF SYSTEMS: Admits to generalized body weakness with sudden onset of dizziness and lightheadedness on the day of admission. Also admits to insomnia and disruptive sleep patterns. Moreover, admits to sudden onset of substernal chest pain, radiating to both upper and lower extremities while having sexual relation with his on the day of admission. Also admits to episodic shortness of breath at the same time as noted. His oral intake has been optimal with slight dyspepsia and nausea but no vomiting episodes. Also admits to marked polyuria, nocturia, and polydipsia. PHYSICAL EXAMINATION: GENERAL: This is an overweight male in no apparent distress. VITAL SIGNS: With a blood pressure of 140/80, pulse of 100 beats per minute and regular, temperature 98, respirations 20. Height is 5 feet 9 inches. Weight is 221 pounds. HEENT: Head: Normocephalic. Eyes: Anicteric with pink conjunctivae. Funduscopy not possible at this time. Ears, nose, throat otherwise normal. NECK: Supple. Thyroid gland is normal in size. No carotid bruits or any cervical adenopathy. CARDIOPULMONARY: Some adynamic precordium. S1 and S2 are rapid and regular. LUNGS: Clear to auscultation. ABDOMEN: Flat, soft with positive bowel sounds. EXTREMITIES: No peripheral edema. Pulses are +2 bilaterally. LABORATORY DATA: His chemistries: BUN of 8, sodium 136, potassium 3.7, chloride 100, CO2 of 23, glucose 403 and creatinine 0.6. His hemoglobin A1c is 15.2% as noted which is quite elevated and indicative of suboptimal metabolic control of his diabetic condition even prior to this admission. His troponin is 24.5, and his creatinine kinase is 1117 with a CK-MB of 67.1. TSH is 0.89. His cholesterol is 211, triglycerides 217, HDL is 29, LDL is 159. ASSESSMENT: This is a 38-year-old male with uncontrolled and decompensated type 2 insulin-requiring diabetes with suboptimal metabolic control of his diabetic condition on oral hypoglycemic therapy, presenting here with acute myocardial infarction and a strong familial history of coronary artery disease and premature amongst his siblings and mother in the mid 40s as noted. PLAN OF MANAGEMENT: The patient will clearly benefit from a more physiologic basal and bolus insulin drug combination for optimized metabolic control especially with his physical stressors of acute myocardial infarction as noted. We will titrate his NovoLog given preprandially to a dose of 12 units t.i.d. before meals to start tomorrow morning as ordered. We will modify the coverage scale with a very low-dose algorithm using NovoLog insulin to obviate hypoglycemia, and detailed orders have been given. We will also titrate his basal insulin with Lantus to be given as 24 units subcu at bedtime daily to start tonight. We will initiate diabetic education and dietary instructions to include insulin self-administration and home glucose monitoring techniques as noted. We also reinforced nutritional counseling and adherence to healthier food choices and weight loss efforts as noted. We will follow and advise accordingly. Ghislaine Ochoa MD
[2018-08-22] MEDS: Sodium Chloride 0.9% 1,000 ML IV SCH (04:00)
[2018-08-22 07:19] LABS: BASO % 0.2 % (0.0-2.0); EOS # 0.1 K/uL (0.0-0.7); EOS % 1.9 % (0.0-4.0); HEMOGLOBIN 14.7 g/dL (12.0-18.0); LYMPH # 2.1 K/uL (1.0-4.3); LYMPH % 27.7 % (20.0-40.0); MEAN CELL VOLUME 82.2 fL (80.0-94.0); MEAN CORPUSCULAR HEMOGLOBIN 28.3 pg (27.0-31.0); MEAN CORPUSCULAR HGB CONC 34.5 g/dL (33.0-37.0); MEAN PLATELET VOLUME 10.4 fL (7.2-11.7); MONO # 0.6 K/uL (0.0-0.8); MONO % 7.7 % (0.0-10.0); NEUT # 4.8 K/uL (1.8-7.0); NEUT % 62.5 % (50.0-75.0); RBC 5.2 Mil/uL (4.40-5.90); RED CELL DISTRIBUTION WIDTH 13.3 % (11.5-14.5); WHITE BLOOD COUNT 7.7 K/uL (4.8-10.8)
[2018-08-22] MEDS ORDERED: (Novolog) Insulin Aspart, Recombinant 100 u/ml 10 ml vial SC SCH ×2 (07:30)
[2018-08-22] MEDS: (Novolog) Insulin Aspart, Recombinant 100 u/ml 10 ml vial SC SCH ×7 (07:32→21:44)
[2018-08-22 07:44] LABS: ALB/GLOB RATIO 1.6 (1.0-2.1); ALBUMIN 3.7 g/dL (3.5-5.0); ALT/SGPT 80 U/L (21-72); AST/SGOT 109 U/L (17-59); BLOOD UREA NITROGEN 5 mg/dL (9-20); CALCIUM 8.4 mg/dl (8.6-10.4); GFR NON-AFRICAN AMERICAN > 60
--- NOTE | 2018-08-22 08:16 | CP.PCM.PN ---
Subjective - Date & Time of Evaluation Date of Evaluation: 08/22/18 Time of Evaluation: 08:00 - Subjective Subjective: Patient was seen and examined by me. He was chest pain free, denied palpitations, denied abdominal pain, denied shortness of breath. Pending echo later today. Patient is status post cardiac cath with two drug eluting stents to the RCA on the night of 08/20. Currently remains on ASA, Statin, BB, Brillinta He has a very high HgbA1C and high lipid numbers. Family history of heart disease he says. After some discussion it seems that he is not very serious about stopping smoking and also uninterested in controlling his diabetes. I pointed out to him in very simple language he had a heart attack, we had long discussion. Objective - Vital Signs/Intake and Output Vital Signs (last 24 hours): Temp Pulse Resp BP Pulse Ox 97.6 F 69 19 105/69 98 08/21/18 00:35 08/22/18 07:08 08/22/18 07:08 08/22/18 07:08 08/22/18 07:08 Intake and Output: 08/22/18 08/22/18 06:59 18:59 Intake Total 1421 80 Output Total 900 0 Balance 521 80 - Medications Medications: Current Medications Aspirin (Aspirin Chewable) 81 mg PO DAILY [facility] Last Admin: 08/21/18 09:41 Dose: 81 mg Enoxaparin Sodium (Lovenox) 40 mg SC DAILY [facility] Last Admin: 08/21/18 09:44 Dose: 40 mg Sodium Chloride (Sodium Chloride 0.9%) 1,000 mls @ 80 mls/hr IV .[id number] [facility] Last Admin: 08/22/18 04:00 Dose: 80 mls/hr Insulin Aspart (Novolog) 12 unit SC ACTID [facility] Last Admin: 08/22/18 07:41 Dose: 12 u Insulin Aspart (Novolog) 0 unit SC ACHS [facility] Last Admin: 08/22/18 07:32 Dose: Not Given Insulin Glargine (Lantus) 24 unit SC HS [facility] Last Admin: 08/21/18 21:54 Dose: 24 u Lisinopril (Zestril) 5 mg PO DAILY [facility] Metoprolol Tartrate (Lopressor) 12.5 mg PO BID [facility] Last Admin: 08/21/18 17:24 Dose: 12.5 mg Pantoprazole Sodium (Protonix Ec Tab) 40 mg PO DAILY [facility] Last Admin: 08/21/18 09:43 Dose: 40 mg Rosuvastatin Calcium (Crestor) 40 mg PO HS [facility] Last Admin: 08/21/18 21:54 Dose: 40 mg Ticagrelor (Brilinta) 90 mg PO BID [facility] Last Admin: 08/21/18 17:23 Dose: 90 mg - Labs Labs: 08/22/18 07:05 08/22/18 07:05 PT 11.5 SECONDS (9.7-12.2) 08/20/18 23:12 INR 1.1 08/20/18 23:12 APTT 26.2 SECONDS (21-34) 08/20/18 23:12 - Constitutional Appears: Non-toxic, No Acute Distress - Head Exam Head Exam: NORMAL INSPECTION, NORMOCEPHALIC - Eye Exam Eye Exam: EOMI, Normal appearance - ENT Exam ENT Exam: Mucous Membranes Moist - Respiratory Exam Respiratory Exam: Clear to Ausculation Bilateral, NORMAL BREATHING PATTERN - Cardiovascular Exam Cardiovascular Exam: REGULAR RHYTHM - GI/Abdominal Exam GI & Abdominal Exam: Soft, Normal Bowel Sounds. absent: Distended, Firm, Guarding, Rigid, Tenderness - Extremities Exam Extremities Exam: Full ROM, Normal Capillary Refill, Normal Inspection - Neurological Exam Neurological Exam: Alert, Awake, Oriented x3 - Psychiatric Exam Psychiatric exam: Normal Affect, Normal Mood - Skin Skin Exam: Normal Color, Warm Assessment and Plan - Assessment and Plan (Free Text) Assessment: 1. Inferior Wall and Lateral Wall - STEMI Code heart and cardiac cath with stent 08/22: Today pending Echo Dr Dias Cardio consulted 1. L Main: Patent 2. LAD: Distal 50-60% 3. L Cx/OM: Mid 80% 4. RCA: Mid 99%, distal 90% stenosis 5. LV: EF 55%, Inferior Hypo, EDP 22 Successful intervention of RCA with 2 DEStents -Lisinopril 2.5 PO QD -ASA 325 in field -Brillinta 90mg BID -Crestor 40 HS -Lopressor 12.5 BID planning staged PCI of Left Cx as an out patient 2. DM -uncontrolled HA1c 15 08/22: The patient says he only takes metformin 1,000 BID - and then also reported he often skips it. Now has been started on insulin. Started on lantus 10units,insulin apart 5units with meals Endocrine consult and increase insulin as needed 3. Hyperlipidemia 08/22: We discussed about it, other physicians discussed about it as well. Crestor 40mg OQ 4. Smoking 08/22: Other physicians disucssed with him, I also discussed as well and he did not seem serious about quitting - I pointed out to him this is a high risk factor with the DM, cholesterol. 5. Obesity 6. PPx Heparin PTX 40 daily Diabetic [facility]
[2018-08-22] MEDS ORDERED: Potassium Chloride 20 mEq ER Tab PO STA (09:00)
[2018-08-22] MEDS: Pantoprazole 40 mg EC Tab PO SCH (09:29)
[2018-08-22] MEDS: Enoxaparin 40 mg Syringe SC SCH (09:32)
--- NOTE | 2018-08-22 09:51 | CP.CCUPN ---
<Christine Turner - Last Filed: 08/22/18 15:19> CCU Subjective - Physician Review Subjective (Free Text): ICU PROGRESS NOTE FOR DR. ADRIA TURNER PGY1 Pt seen and examined at bedside this am. No acute events overnight. Pt denying 12 point ROS 08/22/18 12:32 CCU Objective - Vital Signs / Intake & Output Vital Signs (Last 4 hours): Vital Signs Pulse Resp BP Pulse Ox 08/22/18 08:08 75 16 115/68 97 08/22/18 08:00 83 16 96 08/22/18 07:08 69 19 105/69 98 08/22/18 07:00 67 17 95 08/22/18 06:00 64 17 99 Intake and Output (Last 8hrs): Intake & Output 08/21/18 08/22/18 08/22/18 22:59 06:59 14:59 Intake Total 1381 640 650 Output Total 1300 400 0 Balance 81 240 650 Weight 99.397 kg Intake: Intake, IV Amount 640 640 80 Left Hand 640 640 80 Oral 741 570 Output: Urine 1300 400 0 Urine, Voided 1300 400 0 Other: # Voids Urine, Voided 1 1 # Bowel Movements 0 0 - Physical Exam Head: Positive for: Atraumatic, Normocephalic Pupils: Positive for: PERRL Extroacular Muscles: Positive for: EOMI Conjunctiva: Positive for: Normal Mouth: Positive for: Moist Mucous Membranes Respiratory/Chest: Positive for: Clear to Auscultation, Good Air Exchange Cardiovascular: Positive for: Regular Rate and Rhythm, Normal S1, S2 Abdomen: Negative for: Tenderness, Distention Back: Positive for: Normal Inspection Upper Extremity: Positive for: Normal Inspection. Negative for: Cyanosis Lower Extremity: Positive for: Normal Inspection Neurological: Positive for: GCS=15, CN II-XII Intact Skin: Positive for: Warm, Dry Psychiatric: Positive for: Alert, Oriented x 3 - Medications Active Medications: Active Medications Generic Name Dose Route Start Last Admin Trade Name Freq PRN Reason Stop Dose Admin Aspirin 81 mg 08/21/18 10:00 08/22/18 09:32 Aspirin Chewable PO 81 mg DAILY [facility] Administration Enoxaparin Sodium 40 mg 08/21/18 10:00 08/22/18 09:32 Lovenox SC 40 mg DAILY [facility] Administration Insulin Aspart 12 unit 08/22/18 07:30 08/22/18 07:41 Novolog SC 12 u ACTID [facility] Administration Insulin Aspart 0 unit 08/21/18 22:00 08/22/18 07:32 Novolog SC Not Given ACHS [facility] Insulin Glargine 24 unit 08/21/18 22:00 08/21/18 21:54 Lantus SC 24 u HS [facility] Administration Lisinopril 5 mg 08/22/18 10:00 08/22/18 09:30 Zestril PO 5 mg DAILY [facility] Administration Metoprolol Tartrate 12.5 mg 08/21/18 10:00 08/22/18 09:30 Lopressor PO 12.5 mg BID [facility] Administration Pantoprazole Sodium 40 mg 08/21/18 10:00 08/22/18 09:29 Protonix Ec Tab PO 40 mg DAILY [facility] Administration Rosuvastatin Calcium 40 mg 08/21/18 22:00 08/21/18 21:54 Crestor PO 40 mg HS [facility] Administration Ticagrelor 90 mg 08/21/18 10:00 08/22/18 09:30 Brilinta PO 90 mg BID [facility] Administration - Patient Studies Lab Studies: Lab Studies 08/22/18 08/22/18 08/21/18 Range/Units 07:05 07:05 06:07 WBC 7.7 (4.8-10.8) K/uL RBC 5.20 (4.40-5.90) Mil/uL Hgb 14.7 (12.0-18.0) g/dL Hct 42.8 (35.0-51.0) % MCV 82.2 (80.0-94.0) fL MCH 28.3 (27.0-31.0) pg MCHC 34.5 (33.0-37.0) g/dL RDW 13.3 (11.5-14.5) % Plt Count 147 (130-400) K/uL MPV 10.4 (7.2-11.7) fL Neut % (Auto) 62.5 (50.0-75.0) % Lymph % (Auto) 27.7 (20.0-40.0) % [place] % (Auto) 7.7 (0.0-10.0) % Eos % (Auto) 1.9 (0.0-4.0) % Baso % (Auto) 0.2 (0.0-2.0) % Neut # (Auto) 4.8 (1.8-7.0) K/uL Lymph # (Auto) 2.1 (1.0-4.3) K/uL [place] # (Auto) 0.6 (0.0-0.8) K/uL Eos # (Auto) 0.1 (0.0-0.7) K/uL Baso # (Auto) 0.0 (0.0-0.2) K/uL Sodium 136 (132-148) mmol/L Potassium 3.5 L (3.6-5.2) mmol/L Chloride 103 (98-107) mmol/L Carbon Dioxide 25 (22-30) mmol/L Anion Gap 12 (10-20) BUN 5 L (9-20) mg/dL Creatinine 0.7 L (0.8-1.5) mg/dL Est GFR ( Amer) > 60 Est GFR (Non-Af Amer) > 60 Random Glucose 244 H D (75-110) mg/dL Hemoglobin A1c 15.2 H (4.2-6.5) % Calcium 8.4 L (8.6-10.4) mg/dl Phosphorus 3.2 (2.5-4.5) mg/dL Magnesium 1.8 (1.6-2.3) mg/dL Total Bilirubin 0.5 (0.2-1.3) mg/dL AST 109 H D (17-59) U/L ALT 80 H D (21-72) U/L Alkaline Phosphatase 88 (38-126) U/L Total Protein 6.0 L (6.3-8.3) g/dL Albumin 3.7 (3.5-5.0) g/dL Globulin 2.4 (2.2-3.9) gm/dL Albumin/Globulin Ratio 1.6 (1.0-2.1) Laboratory Results - last 24 hr 08/21/18 08/22/18 08/22/18 06:07 07:05 07:05 WBC 7.7 RBC 5.20 Hgb 14.7 Hct 42.8 MCV 82.2 MCH 28.3 MCHC 34.5 RDW 13.3 Plt Count 147 MPV 10.4 Neut % (Auto) 62.5 Lymph % (Auto) 27.7 [place] % (Auto) 7.7 Eos % (Auto) 1.9 Baso % (Auto) 0.2 Neut # (Auto) 4.8 Lymph # (Auto) 2.1 [place] # (Auto) 0.6 Eos # (Auto) 0.1 Baso # (Auto) 0.0 Sodium 136 Potassium 3.5 L Chloride 103 Carbon Dioxide 25 Anion Gap 12 BUN 5 L Creatinine 0.7 L Est GFR ( Amer) > 60 Est GFR (Non-Af Amer) > 60 Random Glucose 244 H D Hemoglobin A1c 15.2 H Calcium 8.4 L Phosphorus 3.2 Magnesium 1.8 Total Bilirubin 0.5 AST 109 H D ALT 80 H D Alkaline Phosphatase 88 Total Protein 6.0 L Albumin 3.7 Globulin 2.4 Albumin/Globulin Ratio 1.6 Radiology Impressions: Radiology Impressions Chest X-Ray 08/20/18 22:51 IMPRESSION: Mild pulmonary vascular congestion noted. Fingerstick Blood Sugar Results: 256 Review of Systems - Review of Systems Review of Systems: per [facility] Critical Care Progress Note - Nutrition Nutrition: Nutrition Category Date Time Status Diabetic [Consistent Carbohydrate] [DIET] Diets 08/21/18 Breakfast Active Assessment/Plan - Assessment and Plan (Free Text) Assessment: 38 y/o M with PMH uncontrolled DM2, tobacco use disorder, family history of IL admitted to ICU s/p STEMI with 2 ANALILIA placement in RCA Plan: Neuro: AxO x 3. GCS 15 CV: -Inferior STEMI s/p code heart and emergent cardiac cath with 2 ANALILIA placement in RCA -Cath findings: 1. L Main: Patent. 2. LAD: Distal 50-60%. 3. L Cx/OM: Mid 80%. 4. RCA: Mid 99%, distal 90% stenosis. 5. LV: EF 55%, Inferior Hypo, EDP 22 -c/w ASA 81, Statins, B blockers, JOSE I for life. Brilinta for 1 yr -echo pending -f/u repeat EKGs -replete electrolytes prn Pulm: -Maintain SpO2>90% -supplement O2 prn NC GI: -c/w protonix for GI ppx /Renal -maintain euvolemia -supplement electrolytes prn Endocrine Uncontrolled Diabetes -Hgb A1c: 15.2 -Started on insulin 12u AC tid -endocrine following DVT/GI PPx: lovenox/protonix Case reviewed with attending physician, Dr. Adria Turner PGY1 <Andres Covington S - Last Filed: 08/22/18 18:12> CCU Subjective - Physician Review Critical Care Time Spent (in minutes): 35 CCU Objective - Vital Signs / Intake & Output Vital Signs (Last 4 hours): Vital Signs Pulse Resp BP Pulse Ox 08/22/18 16:15 74 16 92/59 L 100 08/22/18 16:09 75 15 100 08/22/18 16:00 67 16 100 08/22/18 15:32 76 12 89/58 L 100 08/22/18 15:08 73 21 98 Intake and Output (Last 8hrs): Intake & Output 08/22/18 08/22/18 08/22/18 06:59 14:59 22:59 Intake Total 640 970 0 Output Total 400 600 700 Balance 240 370 -700 Weight 219 lb 2.13 oz Intake: Intake, IV Amount 640 80 Left Hand 640 80 Oral 890 0 Output: Urine 400 600 700 Urine, Voided 400 600 700 Stool 0 Other: # Voids Urine, Voided 1 1 # Bowel Movements 0 - Medications Active Medications: Active Medications Generic Name Dose Route Start Last Admin Trade Name Freq PRN Reason Stop Dose Admin Aspirin 81 mg 08/21/18 10:00 08/22/18 09:32 Aspirin Chewable PO 81 mg DAILY [facility] Administration Enoxaparin Sodium 40 mg 08/21/18 10:00 08/22/18 09:32 Lovenox SC 40 mg DAILY [facility] Administration Insulin Aspart 12 unit 08/22/18 07:30 08/22/18 12:23 Novolog SC 12 u ACTID [facility] Administration Insulin Aspart 0 unit 08/21/18 22:00 08/22/18 17:04 Novolog SC Not Given ACHS [facility] Insulin Glargine 30 unit 08/22/18 22:00 Lantus SC HS [facility] Lisinopril 5 mg 08/22/18 10:00 08/22/18 09:30 Zestril PO 5 mg DAILY [facility] Administration Metoprolol Tartrate 12.5 mg 08/21/18 10:00 08/22/18 09:30 Lopressor PO 12.5 mg BID [facility] Administration Pantoprazole Sodium 40 mg 08/21/18 10:00 08/22/18 09:29 Protonix Ec Tab PO 40 mg DAILY [facility] Administration Rosuvastatin Calcium 40 mg 08/21/18 22:00 08/21/18 21:54 Crestor PO 40 mg HS [facility] Administration Ticagrelor 90 mg 08/21/18 10:00 08/22/18 09:30 Brilinta PO 90 mg BID [facility] Administration - Patient Studies Lab Studies: Lab Studies 08/22/18 08/22/18 Range/Units 07:05 07:05 WBC 7.7 (4.8-10.8) K/uL RBC 5.20 (4.40-5.90) Mil/uL Hgb 14.7 (12.0-18.0) g/dL Hct 42.8 (35.0-51.0) % MCV 82.2 (80.0-94.0) fL MCH 28.3 (27.0-31.0) pg MCHC 34.5 (33.0-37.0) g/dL RDW 13.3 (11.5-14.5) % Plt Count 147 (130-400) K/uL MPV 10.4 (7.2-11.7) fL Neut % (Auto) 62.5 (50.0-75.0) % Lymph % (Auto) 27.7 (20.0-40.0) % [place] % (Auto) 7.7 (0.0-10.0) % Eos % (Auto) 1.9 (0.0-4.0) % Baso % (Auto) 0.2 (0.0-2.0) % Neut # (Auto) 4.8 (1.8-7.0) K/uL Lymph # (Auto) 2.1 (1.0-4.3) K/uL [place] # (Auto) 0.6 (0.0-0.8) K/uL Eos # (Auto) 0.1 (0.0-0.7) K/uL Baso # (Auto) 0.0 (0.0-0.2) K/uL Sodium 136 (132-148) mmol/L Potassium 3.5 L (3.6-5.2) mmol/L Chloride 103 (98-107) mmol/L Carbon Dioxide 25 (22-30) mmol/L Anion Gap 12 (10-20) BUN 5 L (9-20) mg/dL Creatinine 0.7 L (0.8-1.5) mg/dL Est GFR ( Amer) > 60 Est GFR (Non-Af Amer) > 60 Random Glucose 244 H D (75-110) mg/dL Calcium 8.4 L (8.6-10.4) mg/dl Phosphorus 3.2 (2.5-4.5) mg/dL Magnesium 1.8 (1.6-2.3) mg/dL Total Bilirubin 0.5 (0.2-1.3) mg/dL AST 109 H D (17-59) U/L ALT 80 H D (21-72) U/L Alkaline Phosphatase 88 (38-126) U/L Total Protein 6.0 L (6.3-8.3) g/dL Albumin 3.7 (3.5-5.0) g/dL Globulin 2.4 (2.2-3.9) gm/dL Albumin/Globulin Ratio 1.6 (1.0-2.1) Laboratory Results - last 24 hr 08/22/18 08/22/18 07:05 07:05 WBC 7.7 RBC 5.20 Hgb 14.7 Hct 42.8 MCV 82.2 MCH 28.3 MCHC 34.5 RDW 13.3 Plt Count 147 MPV 10.4 Neut % (Auto) 62.5 Lymph % (Auto) 27.7 [place] % (Auto) 7.7 Eos % (Auto) 1.9 Baso % (Auto) 0.2 Neut # (Auto) 4.8 Lymph # (Auto) 2.1 [place] # (Auto) 0.6 Eos # (Auto) 0.1 Baso # (Auto) 0.0 Sodium 136 Potassium 3.5 L Chloride 103 Carbon Dioxide 25 Anion Gap 12 BUN 5 L Creatinine 0.7 L Est GFR ( Amer) > 60 Est GFR (Non-Af Amer) > 60 Random Glucose 244 H D Calcium 8.4 L Phosphorus 3.2 Magnesium 1.8 Total Bilirubin 0.5 AST 109 H D ALT 80 H D Alkaline Phosphatase 88 Total Protein 6.0 L Albumin 3.7 Globulin 2.4 Albumin/Globulin Ratio 1.6 Radiology Impressions: Radiology Impressions Chest X-Ray 08/20/18 22:51 IMPRESSION: Mild pulmonary vascular congestion noted. Critical Care Progress Note - Nutrition Nutrition: Nutrition Category Date Time Status Diabetic [Consistent Carbohydrate] [DIET] Diets 08/21/18 Breakfast Active Attending/Attestation - Attestation I have personally seen and examined this patient.: Yes I have fully participated in the care of the patient.: Yes I have reviewed all pertinent clinical information: Yes Notes (Text): 08/22/18 18:12 Patient seen and examined in the intensive care unit. Case discussed with housestaff in the morning rounds. 38 y/o M with PMH uncontrolled DM2, tobacco use disorder, family history of IL admitted to ICU s/p STEMI with 2 ANALILIA placement in RCA Continue aspirin and Brilinta
--- NOTE | 2018-08-22 17:08 | CARD ---
APPROVED REPORT Date of service: 08/22/2018 EXAM: Two-dimensional and M-mode echocardiogram with Doppler and color Doppler. INDICATION Chest Pain S/P INF WALL UT 2D DIMENSIONS IVSd0.9 (0.7-1.1cm)LVDd4.4 (3.9-5.9cm) PWd1.0 (0.7-1.1cm)LA Nahgdn20 (18-58mL) LVDs3.5 (2.5-4.0cm)FS (%) 21.4 % LVEF (%)60.0 (>50%)LVEF (Germain's)66.96 % IVC0.00 cm M-Mode DIMENSIONS RVDd1.86 (2.1-3.2cm)Left Atrium (MM)3.56 (2.5-4.0cm) IVSd0.97 (0.7-1.1cm)Aortic Root2.77 (2.2-3.7cm) LVDd4.48 (4.0-5.6cm)Aortic Cusp Exc.1.97 (1.5-2.0cm) PWd1.12 (0.7-1.1cm)FS (%) 42 % LVDs2.58 (2.0-3.8cm)LVEF (%)70 (>50%) Mitral Valve MV E Vubjlzwo27.9cm/sMV A Kefanfqz94.2cm/sE/A ratio1.3 TDI Lateral E' Peak V11.90cm/sMedial E' Peak V8.61cm/sE/Lateral E'7.0 E/Medial E'9.6 Tricuspid Valve TR Peak Hjgbqygh793et/sTR Peak Gr.[id number] LEFT VENTRICLE The left ventricle is normal size. There is normal left ventricular wall thickness. The left ventricular ejection fraction is within the normal range. Mild inferior wall hypokinesis The left ventricular diastolic function is normal. No left ventricle thrombus noted on this study. RIGHT VENTRICLE The right ventricle is normal size. There is normal right ventricular wall thickness. The right ventricular systolic function is normal. ATRIA The left atrium size is normal. The right atrium size is normal. AORTIC VALVE The aortic valve is normal in structure. No aortic regurgitation is present. There is no aortic valvular stenosis. There is no aortic valvular vegetation. MITRAL VALVE The mitral valve is normal in structure. Mitral regurgitation is trace. TRICUSPID VALVE There is trace tricuspid regurgitation. PULMONIC VALVE There is trace pulmonic valvular regurgitation. GREAT VESSELS The aortic root is normal in size. The IVC is normal in size and collapses >50% with inspiration. PERICARDIAL EFFUSION There is no pericardial effusion. <Conclusion> There is normal left ventricular wall thickness. The left ventricular ejection fraction is within the normal range. Mild inferior wall hypokinesis The left ventricular diastolic function is normal. No left ventricle thrombus noted on this study.
--- NOTE | 2018-08-22 20:45 | CARD ---
APPROVED REPORT Date of service: 08/21/2018 EKG Measurement Heart [id number] <Conclusion> Normal sinus rhythm Inferior infarct, recent Abnormal ECG
--- NOTE | 2018-08-22 20:47 | CARD ---
APPROVED REPORT Date of service: 08/21/2018 EKG Measurement Heart [id number] <Conclusion> Normal sinus rhythm with sinus arrhythmia Inferior infarct, recent Abnormal ECG
--- NOTE | 2018-08-22 21:52 | CP.PCM.PN ---
Subjective - Date & Time of Evaluation Date of Evaluation: 08/22/18 Time of Evaluation: 17:20 - Subjective Subjective: Patient with no cardiac events Denies chest pain and dyspnea Objective - Vital Signs/Intake and Output Vital Signs (last 24 hours): Temp Pulse Resp BP Pulse Ox 97.6 F 69 19 105/69 98 08/21/18 00:35 08/22/18 07:08 08/22/18 07:08 08/22/18 07:08 08/22/18 07:08 Intake and Output: 08/22/18 08/22/18 06:59 18:59 Intake Total 1421 80 Output Total 900 0 Balance 521 80 - Medications Medications: Current Medications Aspirin (Aspirin Chewable) 81 mg PO DAILY [facility] Last Admin: 08/21/18 09:41 Dose: 81 mg Enoxaparin Sodium (Lovenox) 40 mg SC DAILY [facility] Last Admin: 08/21/18 09:44 Dose: 40 mg Sodium Chloride (Sodium Chloride 0.9%) 1,000 mls @ 80 mls/hr IV .[id number] [facility] Last Admin: 08/22/18 04:00 Dose: 80 mls/hr Insulin Aspart (Novolog) 12 unit SC ACTID [facility] Last Admin: 08/22/18 07:41 Dose: 12 u Insulin Aspart (Novolog) 0 unit SC ACHS [facility] Last Admin: 08/22/18 07:32 Dose: Not Given Insulin Glargine (Lantus) 24 unit SC HS [facility] Last Admin: 08/21/18 21:54 Dose: 24 u Lisinopril (Zestril) 5 mg PO DAILY [facility] Metoprolol Tartrate (Lopressor) 12.5 mg PO BID [facility] Last Admin: 08/21/18 17:24 Dose: 12.5 mg Pantoprazole Sodium (Protonix Ec Tab) 40 mg PO DAILY [facility] Last Admin: 08/21/18 09:43 Dose: 40 mg Rosuvastatin Calcium (Crestor) 40 mg PO HS [facility] Last Admin: 08/21/18 21:54 Dose: 40 mg Ticagrelor (Brilinta) 90 mg PO BID [facility] Last Admin: 08/21/18 17:23 Dose: 90 mg - Labs Labs: 08/22/18 07:05 08/22/18 07:05 PT 11.5 SECONDS (9.7-12.2) 08/20/18 23:12 INR 1.1 08/20/18 23:12 APTT 26.2 SECONDS (21-34) 08/20/18 23:12 - Constitutional Appears: Non-toxic, No Acute Distress - Head Exam Head Exam: NORMAL INSPECTION, NORMOCEPHALIC - Eye Exam Eye Exam: EOMI, Normal appearance - ENT Exam ENT Exam: Mucous Membranes Moist - Respiratory Exam Respiratory Exam: Clear to Ausculation Bilateral, NORMAL BREATHING PATTERN - Cardiovascular Exam Cardiovascular Exam: REGULAR RHYTHM - GI/Abdominal Exam GI & Abdominal Exam: Soft, Normal Bowel Sounds. absent: Distended, Firm, Guarding, Rigid, Tenderness - Extremities Exam Extremities Exam: Full ROM, Normal Capillary Refill, Normal Inspection - Neurological Exam Neurological Exam: Alert, Awake, Oriented x3 - Psychiatric Exam Psychiatric exam: Normal Affect, Normal Mood - Skin Skin Exam: Normal Color, Warm Assessment and Plan - Assessment and Plan (Free Text) Assessment: 1. Inferior Wall and Lateral Wall - STEMI Code heart and cardiac cath with stent 08/22 1. L Main: Patent 2. LAD: Distal 50-60% 3. L Cx/OM: Mid 80% 4. RCA: Mid 99%, distal 90% stenosis 5. LV: EF 55%, Inferior Hypo, EDP 22 Successful intervention of RCA with 2 DEStents -Lisinopril 2.5 PO QD -ASA 325 in field -Brillinta 90mg BID -Crestor 40 HS -Lopressor 12.5 BID planning staged PCI of Left Cx as an out patient ECHO: Normal EF 2. DM -uncontrolled HA1c 15 08/22: The patient says he only takes metformin 1,000 BID - and then also r eported he often skips it. Now has been started on insulin. Started on lantus 10units,insulin apart 5units with meals Endocrine consult and increase insulin as needed 3. Hyperlipidemia 08/22: We discussed about it, other physicians discussed about it as well. Crestor 40mg OQ 4. Smoking 08/22: Other physicians disucssed with him, I also discussed as well and he did not seem serious about quitting - I pointed out to him this is a high risk factor with the DM, cholesterol. 5. Obesity 6. PPx Heparin PTX 40 daily Diabetic HHD Objective - Vital Signs/Intake and Output Vital Signs (last 24 hours): Temp Pulse Resp BP Pulse Ox 97.6 F 74 26 H 96/56 L 98 08/21/18 00:35 08/22/18 20:08 08/22/18 20:08 08/22/18 20:08 08/22/18 20:08 Intake and Output: 08/22/18 08/23/18 18:59 06:59 Intake Total 1150 240 Output Total 1300 0 Balance -150 240 - Medications Medications: Current Medications Aspirin (Aspirin Chewable) 81 mg PO DAILY [facility] Last Admin: 08/22/18 09:32 Dose: 81 mg Enoxaparin Sodium (Lovenox) 40 mg SC DAILY [facility] Last Admin: 08/22/18 09:32 Dose: 40 mg Insulin Aspart (Novolog) 12 unit SC ACTID [facility] Last Admin: 08/22/18 17:00 Dose: 12 u Insulin Aspart (Novolog) 0 unit SC ACHS [facility] Last Admin: 08/22/18 21:44 Dose: Not Given Insulin Glargine (Lantus) 30 unit SC HS [facility] Last Admin: 08/22/18 21:46 Dose: 30 unit Lisinopril (Zestril) 5 mg PO DAILY [facility] Last Admin: 08/22/18 09:30 Dose: 5 mg Metoprolol Tartrate (Lopressor) 12.5 mg PO BID [facility] Last Admin: 08/22/18 19:24 Dose: Not Given Pantoprazole Sodium (Protonix Ec Tab) 40 mg PO DAILY [facility] Last Admin: 08/22/18 09:29 Dose: 40 mg Rosuvastatin Calcium (Crestor) 40 mg PO HS [facility] Last Admin: 08/22/18 21:44 Dose: 40 mg Ticagrelor (Brilinta) 90 mg PO BID [facility] Last Admin: 08/22/18 19:24 Dose: 90 mg - Labs Labs: 08/22/18 07:05 08/22/18 07:05 PT 11.5 SECONDS (9.7-12.2) 08/20/18 23:12 INR 1.1 08/20/18 23:12 APTT 26.2 SECONDS (21-34) 08/20/18 23:12
[2018-08-22] MEDS ORDERED: (Lantus) Insulin Glargine, Recombinant SC SCH (22:00)
--- NOTE | 2018-08-23 00:05 | PN ---
DATE: 08/22/2018 ENDOCRINOLOGY FOLLOWUP NOTE LOCATION: ICU room, 16. SUBJECTIVE: This is a 38-year-old male with recent uncontrolled type 2 insulin-requiring diabetes, presenting here with sudden onset of precordial chest pain, and evaluated to have an acute inferior wall myocardial infarction and underwent a stent placement in the right coronary artery and is now being followed closely for metabolic management. His glycemic levels are fluctuating but improved. LABORATORY DATA: Latest chemistry showed a BUN of 5, sodium 136, potassium 3.5, chloride 103, CO2 of 25, glucose 244, and creatinine 0.7. His troponin levels are 24.5 and CK-MB is 67.1 with a total creatinine kinase of 1117. His A1c is 15.2%. ASSESSMENT: This is a 38-year-old male with recent uncontrolled type 2 insulin-requiring diabetes, probably recent onset because he was actually only on oral hypoglycemic drug therapy on the outpatient with persistent hyperglycemic accelerations and clearly a suboptimal metabolic control with an A1c is over 15% despite the oral hypoglycemic drug combination as taken. He also has significant coronary artery disease with an inferior wall myocardial infarction and multivessel occlusion and underwent a coronary stenting in the right coronary artery as undertaken thereof. There is also a very strong family history of cardiac vasculopathy among his family members as noted and premature cardiac in their mid 40s. PLAN OF MANAGEMENT: The imperative need for tighter metabolic control could not but be overemphasized, and we will continue the basal and bolus insulin regimen at the modified dosing as undertaken. We will titrate his basal insulin to higher dosing of Levemir given as 30 units subcutaneous at bedtime daily as given. We will also continue the NovoLog given as 12 units t.i.d. before meals to start today as ordered. We will initiate diabetic education and dietary instructions to include insulin self-administration and home glucose monitoring accordingly. The imperative need to initiate insulin therapy for optimal metabolic control was discussed with the patient and his at bedside. We will follow and advise accordingly. Ghislaine Ochoa MD
[2018-08-23 04:46] VITALS: O2SAT 99
[2018-08-23 05:52] LABS: BASO % 0.3 % (0.0-2.0); EOS # 0.2 K/uL (0.0-0.7); EOS % 2.6 % (0.0-4.0); HEMOGLOBIN 14.9 g/dL (12.0-18.0); LYMPH # 2.3 K/uL (1.0-4.3); MEAN CELL VOLUME 82.8 fL (80.0-94.0); MEAN CORPUSCULAR HEMOGLOBIN 28.3 pg (27.0-31.0); MEAN CORPUSCULAR HGB CONC 34.2 g/dL (33.0-37.0); MEAN PLATELET VOLUME 10.4 fL (7.2-11.7); MONO # 0.7 K/uL (0.0-0.8); MONO % 9.4 % (0.0-10.0); NEUT # 4.4 K/uL (1.8-7.0); NEUT % 57.7 % (50.0-75.0); NRBC % 0.1 % (0.0-2.0); RBC 5.26 Mil/uL (4.40-5.90); RED CELL DISTRIBUTION WIDTH 13.2 % (11.5-14.5); WHITE BLOOD COUNT 7.7 K/uL (4.8-10.8)
[2018-08-23 06:15] LABS: ALB/GLOB RATIO 1.4 (1.0-2.1); ALBUMIN 3.6 g/dL (3.5-5.0); ALT/SGPT 62 U/L (21-72); AST/SGOT 58 U/L (17-59); BLOOD UREA NITROGEN 8 mg/dL (9-20); GFR NON-AFRICAN AMERICAN > 60
--- NOTE | 2018-08-23 07:35 | CARD ---
APPROVED REPORT Date of service: 08/20/2018 EKG Measurement Heart [id number] <Conclusion> Sinus rhythm with occasional premature ventricular complexes Nonspecific ST abnormality Abnormal ECG
[2018-08-23] MEDS: (Novolog) Insulin Aspart, Recombinant 100 u/ml 10 ml vial SC SCH ×4 (08:34→12:37)
[2018-08-23] MEDS: Enoxaparin 40 mg Syringe SC SCH (09:14)
[2018-08-23] MEDS: Pantoprazole 40 mg EC Tab PO SCH (09:14)
--- NOTE | 2018-08-23 09:33 | CP.PCM.PN ---
Subjective - Date & Time of Evaluation Date of Evaluation: 08/23/18 Time of Evaluation: 09:30 - Subjective Subjective: Patient was seen and examined by me. Patient reportedly feeling well. The patient denied chest pain, denied shortness of breath, denied palpitations Per discussion with nursing staff no events noted As mentioned previously he is status post cardiac cath with two drug eluting stents to the RCA on the night of 08/20. Currently remains on ASA, Statin, BB, Brillinta. He has a very high HgbA1C and high lipid numbers. Family history of heart disease he says. There is a history of heavy smoking. Objective - Vital Signs/Intake and Output Vital Signs (last 24 hours): Temp Pulse Resp BP Pulse Ox 98.1 F 79 19 116/70 99 08/23/18 08:00 08/23/18 09:00 08/23/18 09:00 08/23/18 08:08 08/23/18 04:00 Intake and Output: 08/23/18 08/23/18 06:59 18:59 Intake Total 390 0 Output Total 700 Balance -310 0 - Medications Medications: Current Medications Aspirin (Aspirin Chewable) 81 mg PO DAILY [facility] Last Admin: 08/23/18 09:14 Dose: 81 mg Enoxaparin Sodium (Lovenox) 40 mg SC DAILY [facility] Last Admin: 08/23/18 09:14 Dose: 40 mg Insulin Aspart (Novolog) 12 unit SC ACTID [facility] Last Admin: 08/23/18 08:34 Dose: 12 u Insulin Aspart (Novolog) 0 unit SC ACHS [facility] Last Admin: 08/23/18 08:35 Dose: Not Given Insulin Glargine (Lantus) 30 unit SC HS [facility] Last Admin: 08/22/18 21:46 Dose: 30 unit Lisinopril (Zestril) 5 mg PO DAILY [facility] Last Admin: 08/23/18 09:14 Dose: 5 mg Metoprolol Tartrate (Lopressor) 12.5 mg PO BID [facility] Last Admin: 08/23/18 09:15 Dose: 12.5 mg Pantoprazole Sodium (Protonix Ec Tab) 40 mg PO DAILY [facility] Last Admin: 08/23/18 09:14 Dose: 40 mg Rosuvastatin Calcium (Crestor) 40 mg PO HS [facility] Last Admin: 08/22/18 21:44 Dose: 40 mg Ticagrelor (Brilinta) 90 mg PO BID [facility] Last Admin: 08/23/18 09:14 Dose: 90 mg - Labs Labs: 08/23/18 05:45 08/23/18 05:43 PT 11.5 SECONDS (9.7-12.2) 08/20/18 23:12 INR 1.1 08/20/18 23:12 APTT 26.2 SECONDS (21-34) 08/20/18 23:12 - Constitutional Appears: Well, Non-toxic, No Acute Distress - Head Exam Head Exam: NORMAL INSPECTION, NORMOCEPHALIC - Eye Exam Eye Exam: EOMI, Normal appearance - ENT Exam ENT Exam: Mucous Membranes Moist - Respiratory Exam Respiratory Exam: Clear to Ausculation Bilateral, NORMAL BREATHING PATTERN - Cardiovascular Exam Cardiovascular Exam: REGULAR RHYTHM - Neurological Exam Neurological Exam: Alert, Awake, Oriented x3 - Psychiatric Exam Psychiatric exam: Normal Affect, Normal Mood - Skin Skin Exam: Normal Color, Warm Assessment and Plan - Assessment and Plan (Free Text) Assessment: 1. Inferior Wall and Lateral Wall - STEMI Code heart and cardiac cath with stent 08/23: At this time patient reported doing ok, the echo read as normal EF, normal LV wall thickeness, and left ventricular diastolic function normal 08/22: Today pending Echo Dr Dias Cardio consulted 1. L Main: Patent 2. LAD: Distal 50-60% 3. L Cx/OM: Mid 80% 4. RCA: Mid 99%, distal 90% stenosis 5. LV: EF 55%, Inferior Hypo, EDP 22 Successful intervention of RCA with 2 DEStents -Lisinopril 2.5 PO QD -ASA 325 in field -Brillinta 90mg BID -Crestor 40 HS -Lopressor 12.5 BID planning staged PCI of Left Cx as an out patient 2. DM -uncontrolled HA1c 15 08/22: The patient says he only takes metformin 1,000 BID - and then also reported he often skips it. Now has been started on insulin. Started on lantus 10units,insulin apart 5units with meals Endocrine consult and increase insulin as needed 3. Hyperlipidemia 08/22: We discussed about it, other physicians discussed about it as well. Crestor 40mg OQ 4. Smoking 08/22: Other physicians disucssed with him, I also discussed as well and he did not seem serious about quitting - I pointed out to him this is a high risk factor with the DM, cholesterol. 5. Obesity 6. PPx Heparin PTX 40 daily Diabetic HHD
--- NOTE | 2018-08-23 11:09 | CP.CCUPN ---
CCU Subjective - Physician Review Subjective (Free Text): ICU PROGRESS NOTE FOR DR. ADRIA TURNER PGY1 Pt seen and examined at bedside this am. No acute events overnight. Pt denying 12 point ROS CCU Objective - Vital Signs / Intake & Output Vital Signs (Last 4 hours): Vital Signs Temp Pulse Resp BP 08/23/18 09:00 79 19 08/23/18 08:08 78 15 116/70 08/23/18 08:00 98.1 F 67 15 08/23/18 07:45 78 16 127/83 08/23/18 07:08 72 7 L 89/59 L Intake and Output (Last 8hrs): Intake & Output 08/22/18 08/23/18 08/23/18 22:59 06:59 14:59 Intake Total 420 150 0 Output Total 700 700 Balance -280 -550 0 Intake: Oral 420 150 0 Output: Urine 700 700 Urine, Voided 700 700 Stool 0 Other: # Voids Urine, Voided 1 # Bowel Movements 0 - Physical Exam Head: Positive for: Atraumatic, Normocephalic Pupils: Positive for: PERRL Extroacular Muscles: Positive for: EOMI Conjunctiva: Positive for: Normal Mouth: Positive for: Moist Mucous Membranes Respiratory/Chest: Positive for: Clear to Auscultation, Good Air Exchange Cardiovascular: Positive for: Regular Rate and Rhythm, Normal S1, S2 Abdomen: Negative for: Tenderness, Distention Back: Positive for: Normal Inspection Upper Extremity: Positive for: Normal Inspection. Negative for: Cyanosis Lower Extremity: Positive for: Normal Inspection Neurological: Positive for: GCS=15, CN II-XII Intact Skin: Positive for: Warm, Dry Psychiatric: Positive for: Alert, Oriented x 3 - Medications Active Medications: Active Medications Generic Name Dose Route Start Last Admin Trade Name Freq PRN Reason Stop Dose Admin Aspirin 81 mg 08/21/18 10:00 08/23/18 09:14 Aspirin Chewable PO 81 mg DAILY [facility] Administration Enoxaparin Sodium 40 mg 08/21/18 10:00 08/23/18 09:14 Lovenox SC 40 mg DAILY [facility] Administration Insulin Aspart 12 unit 08/22/18 07:30 08/23/18 08:34 Novolog SC 12 u ACTID [facility] Administration Insulin Aspart 0 unit 08/21/18 22:00 08/23/18 08:35 Novolog SC Not Given ACHS [facility] Insulin Glargine 30 unit 08/22/18 22:00 08/22/18 21:46 Lantus SC 30 unit HS [facility] Administration Lisinopril 5 mg 08/22/18 10:00 08/23/18 09:14 Zestril PO 5 mg DAILY [facility] Administration Metoprolol Tartrate 12.5 mg 08/21/18 10:00 08/23/18 09:15 Lopressor PO 12.5 mg BID [facility] Administration Pantoprazole Sodium 40 mg 08/21/18 10:00 08/23/18 09:14 Protonix Ec Tab PO 40 mg DAILY [facility] Administration Rosuvastatin Calcium 40 mg 08/21/18 22:00 08/22/18 21:44 Crestor PO 40 mg HS [facility] Administration Ticagrelor 90 mg 08/21/18 10:00 08/23/18 09:14 Brilinta PO 90 mg BID [facility] Administration - Patient Studies Lab Studies: Microbiology Studies 08/21/18 05:12 MRSA Culture (Admit) - Final Naris MRSA NOT DETECTED Lab Studies 08/23/18 08/23/18 Range/Units 05:45 05:43 WBC 7.7 (4.8-10.8) K/uL RBC 5.26 (4.40-5.90) Mil/uL Hgb 14.9 (12.0-18.0) g/dL Hct 43.5 (35.0-51.0) % MCV 82.8 (80.0-94.0) fL MCH 28.3 (27.0-31.0) pg MCHC 34.2 (33.0-37.0) g/dL RDW 13.2 (11.5-14.5) % Plt Count 142 (130-400) K/uL MPV 10.4 (7.2-11.7) fL Neut % (Auto) 57.7 (50.0-75.0) % Lymph % (Auto) 30.0 (20.0-40.0) % [place] % (Auto) 9.4 (0.0-10.0) % Eos % (Auto) 2.6 (0.0-4.0) % Baso % (Auto) 0.3 (0.0-2.0) % Neut # (Auto) 4.4 (1.8-7.0) K/uL Lymph # (Auto) 2.3 (1.0-4.3) K/uL [place] # (Auto) 0.7 (0.0-0.8) K/uL Eos # (Auto) 0.2 (0.0-0.7) K/uL Baso # (Auto) 0.0 (0.0-0.2) K/uL Sodium 137 (132-148) mmol/L Potassium 3.8 (3.6-5.2) mmol/L Chloride 102 (98-107) mmol/L Carbon Dioxide 25 (22-30) mmol/L Anion Gap 13 (10-20) BUN 8 L (9-20) mg/dL Creatinine 0.8 (0.8-1.5) mg/dL Est GFR ( Amer) > 60 Est GFR (Non-Af Amer) > 60 Random Glucose 183 H D (75-110) mg/dL Calcium 9.0 (8.6-10.4) mg/dl Phosphorus 4.1 (2.5-4.5) mg/dL Magnesium 1.9 (1.6-2.3) mg/dL Total Bilirubin 0.4 (0.2-1.3) mg/dL AST 58 (17-59) U/L ALT 62 (21-72) U/L Alkaline Phosphatase 74 (38-126) U/L Total Protein 6.2 L (6.3-8.3) g/dL Albumin 3.6 (3.5-5.0) g/dL Globulin 2.6 (2.2-3.9) gm/dL Albumin/Globulin Ratio 1.4 (1.0-2.1) Laboratory Results - last 24 hr 08/23/18 08/23/18 05:43 05:45 WBC 7.7 RBC 5.26 Hgb 14.9 Hct 43.5 MCV 82.8 MCH 28.3 MCHC 34.2 RDW 13.2 Plt Count 142 MPV 10.4 Neut % (Auto) 57.7 Lymph % (Auto) 30.0 [place] % (Auto) 9.4 Eos % (Auto) 2.6 Baso % (Auto) 0.3 Neut # (Auto) 4.4 Lymph # (Auto) 2.3 [place] # (Auto) 0.7 Eos # (Auto) 0.2 Baso # (Auto) 0.0 Sodium 137 Potassium 3.8 Chloride 102 Carbon Dioxide 25 Anion Gap 13 BUN 8 L Creatinine 0.8 Est GFR ( Amer) > 60 Est GFR (Non-Af Amer) > 60 Random Glucose 183 H D Calcium 9.0 Phosphorus 4.1 Magnesium 1.9 Total Bilirubin 0.4 AST 58 ALT 62 Alkaline Phosphatase 74 Total Protein 6.2 L Albumin 3.6 Globulin 2.6 Albumin/Globulin Ratio 1.4 Fingerstick Blood Sugar Results: 148 Review of Systems - Review of Systems Review of Systems: per [facility] Critical Care Progress Note - Nutrition Nutrition: Nutrition Category Date Time Status Diabetic [Consistent Carbohydrate] [DIET] Diets 08/21/18 Breakfast Active Assessment/Plan - Assessment and Plan (Free Text) Assessment: 38 y/o M with PMH uncontrolled DM2, tobacco use disorder, family history of [place] admitted to ICU s/p STEMI with 2 ANALILIA placement in RCA Plan: -Patient remains hemodynamically stable -Will transfer to telemetry today -cardiology made aware Case reviewed with attending physician, Dr. Adria Turner PGY1
[2018-08-23 12:10] VITALS: TEMP 98.5
[2018-08-23 13:54] VITALS: BP 84/51
[2018-08-23 14:11] VITALS: PULSE 70; RESP 18
--- NOTE | 2018-08-23 14:48 | CP.PCM.DIS ---
Provider - Provider Date of Admission: 08/20/18 23:33 Attending physician: Mikal Mckee MD Primary care physician: Dr Osman Consults: 08/20/18 23:35 Cardiology Consult Routine Comment: Consulting Provider: Daniel Dias Consulting Physician: Daniel Dias Reason for Consult: RCA STEMI 08/21/18 00:49 Pulmonology Consult Routine Comment: Consulting Provider: Andres Covington Consulting Physician: Andres Covington Reason for Consult: s/p Inf Wall NC RCA 08/21/18 00:51 Critical Care Consult Routine Comment: Consulting Provider: Devan Denney Consulting Physician: Devan Denney Reason for Consult: s/p inf wall NC 08/21/18 17:23 Physician Consult Routine Comment: Consulting Provider: Ghislaine Ochoa Consulting Physician: Ghislaine Ochoa Reason for Consult: Poorly controlled DM HA1c 15 08/22/18 12:39 Diabetic Education Referral Routine Comment: Physician Instructions: Reason For Exam: diabetic teaching Time Spent in preparation of Discharge (in minutes): 39 Diagnosis - Discharge Diagnosis (1) Acute inferolateral myocardial infarction Status: Acute (2) DM2 (diabetes mellitus, type 2) Status: Chronic (3) HTN (hypertension) Status: Chronic (4) Smoking Status: Chronic Hospital Course - Lab Results Lab Results: Micro Results 08/21/18 05:12 Naris MRSA Culture (Admit) - Final MRSA NOT DETECTED Most Recent Lab Values WBC 7.7 K/uL (4.8-10.8) 08/23/18 05:45 RBC 5.26 Mil/uL (4.40-5.90) 08/23/18 05:45 Hgb 14.9 g/dL (12.0-18.0) 08/23/18 05:45 Hct 43.5 % (35.0-51.0) 08/23/18 05:45 MCV 82.8 fL (80.0-94.0) 08/23/18 05:45 MCH 28.3 pg (27.0-31.0) 08/23/18 05:45 MCHC 34.2 g/dL (33.0-37.0) 08/23/18 05:45 RDW 13.2 % (11.5-14.5) 08/23/18 05:45 Plt Count 142 K/uL (130-400) 08/23/18 05:45 MPV 10.4 fL (7.2-11.7) 08/23/18 05:45 Neut % (Auto) 57.7 % (50.0-75.0) 08/23/18 05:45 Lymph % (Auto) 30.0 % (20.0-40.0) 08/23/18 05:45 [place] % (Auto) 9.4 % (0.0-10.0) 08/23/18 05:45 Eos % (Auto) 2.6 % (0.0-4.0) 08/23/18 05:45 Baso % (Auto) 0.3 % (0.0-2.0) 08/23/18 05:45 Neut # (Auto) 4.4 K/uL (1.8-7.0) 08/23/18 05:45 Lymph # (Auto) 2.3 K/uL (1.0-4.3) 08/23/18 05:45 [place] # (Auto) 0.7 K/uL (0.0-0.8) 08/23/18 05:45 Eos # (Auto) 0.2 K/uL (0.0-0.7) 08/23/18 05:45 Baso # (Auto) 0.0 K/uL (0.0-0.2) 08/23/18 05:45 PT 11.5 SECONDS (9.7-12.2) 08/20/18 23:12 INR 1.1 08/20/18 23:12 APTT 26.2 SECONDS (21-34) 08/20/18 23:12 Sodium 137 mmol/L (132-148) 08/23/18 05:43 Potassium 3.8 mmol/L (3.6-5.2) 08/23/18 05:43 Chloride 102 mmol/L (98-107) 08/23/18 05:43 Carbon Dioxide 25 mmol/L (22-30) 08/23/18 05:43 Anion Gap 13 (10-20) 08/23/18 05:43 BUN 8 mg/dL (9-20) L 08/23/18 05:43 Creatinine 0.8 mg/dL (0.8-1.5) 08/23/18 05:43 Est GFR ( Amer) > 60 08/23/18 05:43 Est GFR (Non-Af Amer) > 60 08/23/18 05:43 POC Glucose (mg/dL) > 500 mg/dL (65-110) H* 08/20/18 22:52 Random Glucose 183 mg/dL (75-110) H D 08/23/18 05:43 Hemoglobin A1c 15.2 % (4.2-6.5) H 08/21/18 06:07 Calcium 9.0 mg/dl (8.6-10.4) 08/23/18 05:43 Phosphorus 4.1 mg/dL (2.5-4.5) 08/23/18 05:43 Magnesium 1.9 mg/dL (1.6-2.3) 08/23/18 05:43 Total Bilirubin 0.4 mg/dL (0.2-1.3) 08/23/18 05:43 AST 58 U/L (17-59) 08/23/18 05:43 ALT 62 U/L (21-72) 08/23/18 05:43 Alkaline Phosphatase 74 U/L (38-126) 08/23/18 05:43 Total Creatine Kinase 1117 U/L (55-170) H 08/21/18 07:19 CK-MB (Mass) 67.1 ng/mL (0.0-3.38) H 08/21/18 07:19 Troponin I 24.5000 ng/mL (0.00-0.120) H* 08/21/18 07:19 Total Protein 6.2 g/dL (6.3-8.3) L 08/23/18 05:43 Albumin 3.6 g/dL (3.5-5.0) 08/23/18 05:43 Globulin 2.6 gm/dL (2.2-3.9) 08/23/18 05:43 Albumin/Globulin Ratio 1.4 (1.0-2.1) 08/23/18 05:43 Triglycerides 217 mg/dL (0-149) H 08/21/18 06:07 Cholesterol 211 mg/dL (0-199) H 08/21/18 06:07 LDL Cholesterol Direct 159 mg/dL (0-129) H 08/21/18 06:07 HDL Cholesterol 29 mg/dL (30-70) L 08/21/18 06:07 TSH 3rd Generation 0.89 mIU/L (0.46-4.68) 08/21/18 06:07 Blood Type O POSITIVE 08/20/18 23:08 Antibody Screen Negative 08/20/18 23:08 - Hospital Course Hospital Course: This is a 38 year old male with a past medical history of heavy smoking, HTN, and Diabetes. He came to [facility] ER on Tuesday08/20/18 after having 1 hr of substernal chest pain that was radiating to his arms and neck. There was + sweating, and also generalized body aches noted. According to reports he was having intercourse with his when this occurred. EMS arrived and he was immediately given ASA, because of the pain, and then morphine. The EKGs showed that he was having an ACUTE Inferior Lateral wall NC. A CODE Heart was activated and when he came he was immediately moved to the cardiac catherization lab where he had TWO drug eluting stents placed in the Mid and Distal RCA. Per discussion with cardiology the patient needs to follow up out patient for eventual intervention of the Left circumflex As follows: 1. L Main: Patent 2. LAD: Distal 50-60% 3. L Cx/OM: Mid 80% 4. RCA: Mid 99%, distal 90% stenosis 5. LV: EF 55%, Inferior Hypo, EDP 22 He did well after the cardiac catherization and was monitored in the ICU until 08/23/18. He has been chest pain free and able to ambulate in the room. The next day he also underwent a 2decho showing normal left ventricular wall thickness as well as a normal EF and mild inferior wall hypokinesis. According to the patient, he has had family members who have in their 40s in [place] due to heart attacks. For the record, the patient has been repeatedly told that the smoking he has done for such a long time is dangerous. Also he explains that he should be on metformin however he often does not take his metformin. While he does speak [place]ian, we have had translators to help explain to him the dangers of the smoking, lack of sugar control. We strong emphasized to him that he must take his medication - in particular the Plavix, otherwise he is at real risk of stent occulusion. Also his HgbA1C was 15. A diabetic councillor spoke with the patient. He needs to monitor his sugars and also take insulin. He needs to follow up with his primary physician He also needs to follow up within one month with cardiology as well as he will likely need further intervention. I showed the patient and the patient's at bedside the cost of these medications such as Plavix, Zocor, Lisinopril, Lopressor and Novolin 70/30 and these were very affordable IF he stops smoking - he uses up one pack of cigarette every two days. Donaldo Eddy Discharge Exam - Head Exam Head Exam: NORMAL INSPECTION, NORMOCEPHALIC - Eye Exam Eye Exam: EOMI, Normal appearance Pupil Exam: PERRL - Respiratory Exam Respiratory Exam: Clear to PA & Lateral, NORMAL BREATHING PATTERN, UNREMARKABLE - Cardiovascular Exam Cardiovascular Exam: REGULAR RHYTHM - GI/Abdominal Exam GI & Abdominal Exam: Normal Bowel Sounds, Unremarkable - Neurological Exam Neurological exam: Alert, CN II-XII Intact, Normal Gait, Oriented x3 - Psychiatric Exam Psychiatric exam: Normal Affect, Normal Mood - Skin Skin Exam: Normal Color, Warm Discharge Plan - Discharge Medications Prescriptions: Aspirin [Aspirin Chewable] 81 mg PO DAILY #30 chew Clopidogrel Bisulfate [Plavix] 75 mg PO DAILY #30 tablet Insulin Glargine, Recombina [Lantus] 10 unit SC ONCE #1 vial Insulin Human (NPH)/Regular [Novolin 70/30 (70/30 units/ml) 10 ml] 10 units SC TID #1 vial Lisinopril [Zestril] 5 mg PO DAILY #30 tab Metoprolol Tartrate [Lopressor] 12.5 mg PO BID #60 tab Simvastatin [Zocor] 20 mg PO DAILY #30 tablet - Follow Up Plan Condition: CRITICAL Disposition: HOME/ ROUTINE
--- NOTE | 2018-08-23 16:02 | CP.PCM.PN ---
<Ned Strange - Last Filed: 08/23/18 17:06> Subjective - Date & Time of Evaluation Date of Evaluation: 08/23/18 Time of Evaluation: 07:55 - Subjective Subjective: PGY2 Cardiology Note for Dr. Dias The patient was seen an examined at bedside in the ICU with his present. He is feeling well and laying comfortably in bed. He is feeling well and has no complaints at this time. Patient denies chest pain, palpitations, shortness of breath, trouble breathing, leg swelling, fever, chills, abdominal complaints, or pain at femoral access site. Objective - Vital Signs/Intake and Output Vital Signs (last 24 hours): Temp Pulse Resp BP Pulse Ox 98.5 F 70 18 84/51 L 99 08/23/18 12:00 08/23/18 14:00 08/23/18 14:00 08/23/18 12:08 08/23/18 04:00 Intake and Output: 08/23/18 08/23/18 06:59 18:59 Intake Total 390 120 Output Total 700 Balance -310 120 - Medications Medications: Current Medications Aspirin (Aspirin Chewable) 81 mg PO DAILY [facility] Last Admin: 08/23/18 09:14 Dose: 81 mg Enoxaparin Sodium (Lovenox) 40 mg SC DAILY [facility] Last Admin: 08/23/18 09:14 Dose: 40 mg Insulin Aspart (Novolog) 12 unit SC ACTID [facility] Last Admin: 08/23/18 12:31 Dose: 12 u Insulin Aspart (Novolog) 0 unit SC ACHS [facility] Last Admin: 08/23/18 12:37 Dose: Not Given Insulin Glargine (Lantus) 30 unit SC HS [facility] Last Admin: 08/22/18 21:46 Dose: 30 unit Lisinopril (Zestril) 5 mg PO DAILY [facility] Last Admin: 08/23/18 09:14 Dose: 5 mg Metoprolol Tartrate (Lopressor) 12.5 mg PO BID [facility] Last Admin: 08/23/18 09:15 Dose: 12.5 mg Pantoprazole Sodium (Protonix Ec Tab) 40 mg PO DAILY [facility] Last Admin: 08/23/18 09:14 Dose: 40 mg Rosuvastatin Calcium (Crestor) 40 mg PO HS [facility] Last Admin: 08/22/18 21:44 Dose: 40 mg Ticagrelor (Brilinta) 90 mg PO BID [facility] Last Admin: 08/23/18 09:14 Dose: 90 mg - Labs Labs: 08/23/18 05:45 08/23/18 05:43 PT 11.5 SECONDS (9.7-12.2) 08/20/18 23:12 INR 1.1 08/20/18 23:12 APTT 26.2 SECONDS (21-34) 08/20/18 23:12 - Constitutional Appears: Non-toxic, No Acute Distress - Head Exam Head Exam: ATRAUMATIC, NORMOCEPHALIC - ENT Exam ENT Exam: Mucous Membranes Moist - Respiratory Exam Respiratory Exam: NORMAL BREATHING PATTERN. absent: Accessory Muscle Use, Rales, Rhonchi, Wheezes, Respiratory Distress - Cardiovascular Exam Cardiovascular Exam: REGULAR RHYTHM, +S1, +S2 - GI/Abdominal Exam GI & Abdominal Exam: Soft. absent: Distended, Firm, Guarding, Rigid, Tenderness - Extremities Exam Extremities Exam: absent: Calf Tenderness, Pedal Edema - Neurological Exam Neurological Exam: Alert, Awake, Oriented x3 - Psychiatric Exam Psychiatric exam: Normal Affect, Normal Mood - Skin Skin Exam: Dry, Warm Assessment and Plan - Assessment and Plan (Free Text) Plan: Code Heart Inferior Wall and Lateral Wall - STEMI s/p cardiac cath and RCA stenting on 08/22/18. 1. L Main: Patent 2. LAD: Distal 50-60% 3. L Cx/OM: Mid 80% 4. RCA: Mid 99%, distal 90% stenosis 5. LV: EF 55%, Inferior Hypo, EDP 22 Successful intervention of RCA with 2 DEStents ECHO: Normal EF Medications: -Lisinopril 2.5 PO QD -ASA 325 in field -Brillinta 90mg BID -Crestor 40 HS -Lopressor 12.5 BID planning staged PCI of Left Cx as an out patient Uncontrolled Diabetes HgbA1c 15.2 Endocrine consulted Management per primary and endocrine Hyperlipidemia Crestor 40mg OQ Smoking Patient counseled on the importance of quitting smoking. He was informed that t his puts him at an increased risk of further cardiac events. PPx Heparin PTX 40 daily Diabetic HHD DISPO: Patient is stable for discharge from cardiology stand point. He is to follow up with Dr. Dias in his office as an outpatient within 1 month to plan for outpatient PCI of L Cx. Patient is continue to take all medications as directed. Case discussed with Dr. Arun Strange PGY2 <Daniel Dias - Last Filed: 08/23/18 21:57> Objective - Vital Signs/Intake and Output Vital Signs (last 24 hours): Temp Pulse Resp BP Pulse Ox 98.5 F 70 18 84/51 L 99 08/23/18 12:00 08/23/18 14:00 08/23/18 14:00 08/23/18 12:08 08/23/18 04:00 Intake and Output: 08/23/18 08/24/18 18:59 06:59 Intake Total 120 Balance 120 - Labs Labs: 08/23/18 05:45 08/23/18 05:43 PT 11.5 SECONDS (9.7-12.2) 08/20/18 23:12 INR 1.1 08/20/18 23:12 APTT 26.2 SECONDS (21-34) 08/20/18 23:12 Assessment and Plan - Assessment and Plan (Free Text) Plan: Patient seen and evaluated personally by me. Plan of care d/w the director global medical affairs and as documented
--- NOTE | 2018-08-24 00:31 | CON ---
DATE: 08/23/2018 ENDOCRINOLOGY CONSULTATION LOCATION: In ICU room 16. HISTORY OF PRESENT ILLNESS: This is a 38-year-old male with recent uncontrolled type 2 insulin-requiring diabetes, presenting here with acute myocardial infarction and underwent a stent placement in the right coronary artery and is now being followed closely for hemodynamic monitoring in the ICU. Moreover, he is also being followed closely for recent hyperglycemic accelerations and has been started on insulin therapy as noted and given. His glycemic levels have improved overnight and the glucose values have ranged from 148 to 183 mg/dL. His chemistry showed a BUN of 8, sodium 137, potassium 3.8, chloride 102, CO2 of 25, glucose 183, and creatinine 0.8. His troponin level is 24.5. His hemoglobin A1c is 15.2% which is quite elevated and indicative of suboptimal metabolic control of his diabetic condition on the previous oral hypoglycemic drug therapy as given. ASSESSMENT: This is a 38-year-old male with uncontrolled and decompensated type 2 insulin-requiring diabetes with suboptimal metabolic control as confirmed by the extremely elevated A1c levels as noted, despite the intake of oral hypoglycemic drug therapy given in combination. He also has an acute myocardial infarction and with ongoing heparin drip infusion and closer hemodynamic monitoring in the Intensive Care Unit and actually had a right coronary artery stent placement as noted. PLAN OF MANAGEMENT: We will continue the modified basal and bolus insulin regimen as ordered last night with Levemir given at the higher dose of 30 units subcu at bedtime daily as ordered. We will continue the NovoLog given as 12 units t.i.d. before meals as ordered. We will obtain serial chemistries and supplement accordingly as needed. We will also continue the low-dose correction scale using NovoLog insulin as ordered. We will obtain serial chemistries and supplement accordingly as needed. We will follow. Ghislaine Ochoa MD
--- NOTE | 2018-08-28 04:38 | CARDCATH ---
PROCEDURE DATE: 08/20/2018 PROCEDURES: 1. Left heart catheterization. 2. Coronary angiogram. 3. Left coronary artery balloon angioplasty and drug-eluting stent placement. CLINICAL INDICATIONS: 1. Chest pain. 2. Acute inferior wall ST-elevation myocardial infarction. 3. Hypotension. 4. Bradycardia. 5. Diabetes. 6. Hyperlipidemia. 7. Active tobacco use. REFERRING PHYSICIAN: Stella Garcia DO PERFORMING PHYSICIAN: Daniel Dias MD BRIEF CLINICAL HISTORY: Jada Campos is a 38-year-old male, presented to [facility] emergency room with acute inferior wall ST-elevation myocardial infarction. Code heart was activated. The patient received Brilinta, aspirin, and IV heparin in the emergency room. The patient was transferred to [facility] for emergency coronary angiogram and coronary intervention. DESCRIPTION OF THE PROCEDURE: After informed consent, the patient was prepped and draped in the usual sterile fashion. A 2% lidocaine was given in the right groin for local anesthesia. Using micropuncture technique, a 6-Chinese sheath was introduced into the right common femoral artery. A JL4, 6-Chinese diagnostic catheter was engaged into left main coronary artery. Contrast injected and left coronary angiogram was done. Left main coronary artery was patent. Proximal LAD was patent. Mid to distal LAD had a long diffuse 50% to 60% narrowing. Diagonal branches were patent. Left circumflex had a mid 80% concentric stenosis. Obtuse marginal branches were patent. Then, the catheter was exchanged to 6-Chinese JR4 guide catheter. Prior to this, the patient's ACT was maintained about 250. After engagement of the guide catheter to the right coronary artery, contrast injected and right coronary angiogram was taken. The patient had a mid 99% critical stenosis. Distal ostia had 90% tight stenosis. After confirming ACT about 250, the right coronary artery was threaded with run through coronary wire. The mid RCA lesion was predilated with 2.25 x 12 balloon. Distal RCA lesion dilated with 2.25 x 15 balloon. The distal lesion stented with 2.25 x 12 Resolute [place] drug-eluting stent. The mid RCA lesion stented with 2.25 x 12 Resolute [place] stent. Excellent final angiographic results with best FRIEDA-3 flow noted. No complications noted. Prior to intervention, the patient had a FRIEDA-2 flow on the right coronary artery. Then, the pigtail catheter inserted into left ventricle across the aortic valve. LVEDP measured. Contrast was injected and left ventricular angiogram was done. Then, the catheter was pulled back across the aortic valve. Gradient across the aortic valve was measured. LV systolic ejection fraction was approximately 50% to 55%. EDP was 20. No gradient across the aortic valve. CONCLUSION: The patient presented with acute inferior wall ST-elevation myocardial infarction. Cardiac catheterization has revealed critical right coronary artery stenosis. Right coronary artery fixed with two drug-eluting stents. The patient will have stage intervention of the left circumflex as an outpatient. Post procedure, Perclose suture deployed in the right groin with excellent hemostasis. The patient will be transferred to intensive care unit for further evaluation. Daniel Dias MD
== END 2018-08-23 18:00 | disposition home or self-care (01) | DRG 853 ==
LOC: C.ER 22:47 → C.9I 23:25
PROVIDERS: ADMIT Family Medicine; ATTEND Family Medicine
PROC: 027035Z Dilation of Coronary Artery, One Artery with Two Drug-eluting Intraluminal Devices, Percutaneous Approach (ICD-10-PCS; principal; 2018-08-20)
PROC: 4A023N7 Measurement of Cardiac Sampling and Pressure, Left Heart, Percutaneous Approach (ICD-10-PCS; 2018-08-20)
PROC: B2151ZZ Fluoroscopy of Left Heart using Low Osmolar Contrast (ICD-10-PCS; 2018-08-20)
PROC: B2111ZZ Fluoroscopy of Multiple Coronary Arteries using Low Osmolar Contrast (ICD-10-PCS; 2018-08-20)
DX: I21.19 ST elevation (STEMI) myocardial infarction involving other coronary artery of inferior wall (principal); E11.65 Type 2 diabetes mellitus with hyperglycemia; I25.10 Atherosclerotic heart disease of native coronary artery without angina pectoris; I10 Essential (primary) hypertension; E78.5 Hyperlipidemia, unspecified; E66.9 Obesity, unspecified; F17.210 Nicotine dependence, cigarettes, uncomplicated; I25.2 Old myocardial infarction; Z79.4 Long term (current) use of insulin; Z79.82 Long term (current) use of aspirin; Z82.49 Family history of ischemic heart disease and other diseases of the circulatory system; Z83.3 Family history of diabetes mellitus